=== PATIENT | female | born 1955 | race Caucasian/White ===

== ENCOUNTER → 2022-12-21 | Outpatient (CLI) | payer MEDICARE ==
--- NOTE | 2022-12-28 06:45 | BMR ---
EXAMINATION TYPE: MR breast BILAT wo/w con DATE OF EXAM: 12/21/2022 COMPARISON: None. HISTORY: Left Breast Pain, Pt feels a lump medial left breast, Bilateral implants TECHNIQUE: A series of fat and water weighted images in the long and short axis views of both breasts are obtained in conjunction with dynamic contrast MRI with subtraction technique. The patient was i njected with 9 mL intravenous Gadavist gadolinium contrast. Three-dimensional and additional postpr ocessing imaging is created on independent workstation and reviewed during official interpretation of this study. REFERENCE: Reference FINDINGS: Heterogeneously dense tissue bilaterally is present. Bilateral subglandular breast implants are seen. They are fairly symmetric in size. There are bilateral areas of internal folding with smal l focal areas of fluid seen anteriorly consistent with intracapsular rupture. No free silicone seen t o diagnose extracapsular rupture. Prominent but subcentimeter lymph nodes in the bilateral axilla. No significant focal fluid collection or cystic change in either breast. Dynamic postcontrast imaging s hows moderate to severe background enhancement with areas of tiny nodular enhancement which makes rosa luation suboptimal. Within the right breast there is no pathologic enhancement or enhancing greater than 5 mm masses iden tified. There is oval 9 x 3 mm circumscribed T1 hyperintense lesion anteriorly in the right breast ju st above the nipple image 596 series 701. Proteinaceous or hemorrhagic thin-walled cyst is suspected. No abnormal skin thickening is seen. Chest wall is intact. In the left breast, there is a 6 mm round enhancing mass in the posterior left breast abutting the i mplant image 464 series 701. This has heterogeneous enhancement on the dynamic images with predominan t benign gradual type enhancement but some areas of nonspecific plateau type enhancement. Remainder o f left breast shows no additional suspicious enhancing masses or pathologic enhancement. Chest wall i s intact. IMPRESSION: 1. There is 6 mm round enhancing mass posterior left breast abutting the implant may correlate with p atient's physical exam findings or concern. 2. Evidence of bilateral intracapsular implant rupture but implant volume size remains fairly symmetr ic in appearance. No extracapsular rupture noted. BI-RADS 2 benign findings right breast BI-RADS 4 suspicious abnormality left breast Recommendation: Advise diagnostic targeted ultrasound follow-up to further evaluate area of concern left breast. Advise bilateral diagnostic mammogram if it has not been performed to also correlate. Ad vise surgical referral for suspected bilateral intracapsular implant rupture.
== END | disposition home or self-care (01) ==
LOC: RADMRIMAIN 17:22
PROVIDERS: ATTEND Family Medicine
DX: N63.20 Unspecified lump in the left breast, unspecified quadrant (principal); N63.10 Unspecified lump in the right breast, unspecified quadrant
CPT/HCPCS: C8908; A9585; 77049

== ENCOUNTER 2023-01-28 19:44 | Inpatient (IN) | payer MEDICARE ==
[2023-01-28] MEDS ORDERED: SODIUM CHLORIDE 0.9% 500 ML 500 ML IV STA (20:00)
[2023-01-28 20:02] LABS: Glucose,Whole Blood 100 mg/dL (70-110)
--- NOTE | 2023-01-28 20:02 | ED ---
Overdose HPI - General Chief Complaint: Overdose Stated Complaint: overdose Time Seen by Provider: 01/28/23 19:56 Source: patient, family Mode of arrival: wheelchair Limitations: no limitations - History of Present Illness Initial Comments: This patient is a 67-year-old woman who presents with complaint that she had taken an overdose of Ambien. The patient states she was feeling she would be better off . This was 3 hours prior to arrival. She denies any coingestants. Patient denies chest pain, dyspnea, nausea or vomiting. She does feel tired MD Complaint: intentional overdose -: hour(s) Intent: suicide attempt How Overdose Was Discovered: family/friend present at time Associated Symptoms: depression Treatments Prior to Arrival: none - Related Data Home Medications Medication Instructions Recorded Confirmed Furosemide [Lasix] 20 mg PO DAILY PRN 10/28/14 01/28/23 Levothyroxine Sodium [Synthroid] 137 mcg PO DAILY 01/28/23 01/28/23 Simvastatin [Zocor] 40 mg PO DAILY 01/28/23 01/28/23 diazePAM [Valium] 5 mg PO BID PRN 01/28/23 01/28/23 Previous Rx's Medication Instructions Recorded Melatonin 5 mg PO HS 30 Days #30 tab 02/01/23 fluvoxaMINE MALEATE [Luvox] 150 mg PO HS 30 Days #45 tablet 02/01/23 Allergies Allergy/AdvReac Type Severity Reaction Status Date / Time amoxicillin AdvReac Rash/Hives Verified 01/29/23 05:03 Review of Systems ROS Statement: Those systems with pertinent positive or pertinent negative responses have been documented in the HPI. ROS Other: All systems not noted in ROS Statement are negative. Constitutional: Denies: fever, chills Respiratory: Denies: cough, dyspnea Cardiovascular: Denies: chest pain, palpitations Gastrointestinal: Denies: abdominal pain, vomiting Musculoskeletal: Denies: back pain Neurological: Denies: headache, weakness Psychiatric: Reports: depression, suicidal thoughts. Denies: auditory hallucinations, visual hallucinations, homicidal thoughts Past Medical History Past Medical History: Thyroid Disorder Additional Past Medical History / Comment(s): Hypothyroidism, surgically induced menopause, lower extremity edema History of Any Multi-Drug Resistant Organisms: None Reported Past Surgical History: Breast Surgery, Hysterectomy Additional Past Surgical History / Comment(s): Total abdominal hysterectomy and bilateral salpingo oophorectomy, breast implants bilaterally, jaw surgery to implant teeth Past Anesthesia/Blood Transfusion Reactions: No Reported Reaction Past Psychological History: Depression, Schizoaffective Disorder Smoking Status: Current every day smoker Past Alcohol Use History: Occasional Past Drug Use History: None Reported - Past Family History Mother Family Medical History: CVA/TIA, Diabetes Mellitus, Hypertension Additional Family Medical History / Comment(s): Mother is alive at age 79. Father Family Medical History: No Reported History, Osteoarthritis (OA) Additional Family Medical History / Comment(s): History of depression. Father is alive at age 81. Brother(s) Additional Family Medical History / Comment(s): Patient has 4 brothers with no major medical problems. She has one son and one daughter with no major medical problems. General Exam Limitations: no limitations General appearance: alert, in no apparent distress Head exam: Present: atraumatic, normocephalic Eye exam: Present: normal appearance, PERRL, EOMI, nystagmus. Absent: scleral icterus, conjunctival injection ENT exam: Present: normal oropharynx Neck exam: Present: normal inspection Respiratory exam: Present: normal lung sounds bilaterally. Absent: respiratory distress, wheezes, rales, rhonchi, stridor Cardiovascular Exam: Present: regular rate, normal rhythm, normal heart sounds. Absent: systolic murmur, diastolic murmur, rubs, gallop GI/Abdominal exam: Present: soft. Absent: distended, tenderness, guarding, rebound, rigid, mass Extremities exam: Present: normal inspection, normal capillary refill. Absent: pedal edema, calf tenderness Back exam: Present: normal inspection. Absent: CVA tenderness (R), CVA tenderness (L) Neurological exam: Present: altered (Patient is somnolent but arousable), or iented X3, CN II-XII intact. Absent: motor sensory deficit Psychiatric exam: Present: depressed, suicidal ideation. Absent: anxious, flat affect, manic, homicidal ideation Skin exam: Present: warm, dry, intact, normal color. Absent: rash Course Vital Signs 01/28/23 01/28/23 01/28/23 19:45 19:58 21:22 Temperature 97.9 F Pulse Rate 75 69 62 Pulse Rate [ Right Sitting] Respiratory 18 18 16 Rate Blood Pressure 119/76 122/79 110/71 Blood Pressure [Right Arm Sitting] O2 Sat by Pulse 96 98 96 Oximetry 01/28/23 01/28/23 01/28/23 22:07 22:30 23:06 Temperature Pulse Rate 63 64 67 Pulse Rate [ Right Sitting] Respiratory 15 20 Rate Blood Pressure 112/72 Blood Pressure [Right Arm Sitting] O2 Sat by Pulse 94 L Oximetry 01/29/23 01/29/23 01/29/23 01:30 03:14 04:02 Temperature 97.8 F 97.5 F L Pulse Rate 68 66 Pulse Rate [ 64 Right Sitting] Respiratory 20 18 15 Rate Blood Pressure 136/78 Blood Pressure 125/60 [Right Arm Sitting] O2 Sat by Pulse 93 L 98 95 Oximetry Medical Decision Making - Medical Decision Making This patient is 67-year-old woman who is here to have evaluation of she took e xtra doses of Ambien due to suicidal ideation. The patient was observed in the emergency department until she is more alert and able to speak with the EPS personnel. The patient then admitted or further psychiatric care. The patient did have chest x-ray which I interpreted as being negative for acute infiltrate, pneumothorax, congestive heart failure Was pt. sent in by a medical professional or institution (, PA, HOT [employer]ER, urgent care, hospital, or half-way...) When possible be specific @ -[No] Did you speak to anyone other than the patient for history (EMS, parent, family, police, friend...)? What history was obtained from this source @ -[Patient's family wasn't initially present and didn't give some history Did you review nursing and triage notes (agree or disagree)? Why? @ -[I reviewed and agree with nursing and triage notes] Were old charts reviewed (outside hosp., previous admission, EMS record, old EKG, old radiological studies, urgent care reports/EKG's, half-way records)? Report findings @ -[No old charts were reviewed] Differential Diagnosis (chest pain, altered mental status, abdominal pain women, abdominal pain men, vaginal bleeding, weakness, fever, dyspnea, syncope, headache, dizziness, GI bleed, back pain, seizure, CVA, palpatations, mental health, musculoskeletal)? @ -[Differential Mental Health Depression, anxiety, bipolar, psychosis, schizophrenia, borderline personality, situational depression, adjustment disorder, behavioral disorder, brain tumor, malingering, substance abuse, encephalopathy, medication reaction, dementia, hypothyroidism, degenerative neurologic disorder, lupus.... This is not meant to be all-inclusive list Differential Altered Mental Status: Hypoglycemia, DKA, hypercapnia, ETOH, overdose, CO poisoning, trauma, myxedema coma, HTN encephalopathy, infection, encephalitis, psychosis, intercranial hemorrhage, hepatic encephalopathy, meningitis, CVA, this is not meant to be an all-inclusive list EKG interpreted by me (3pts min.). @ -[As above] X-rays interpreted by me (1pt min.). @ -[As above CT interpreted by me (1pt min.). @ -[None done] U/S interpreted by me (1pt. min.). @ -[None done] What testing was considered but not performed or refused? (CT, X-rays, U/S, labs)? Why? @ -[None] What meds were considered but not given or refused? Why? @ -[None] Did you discuss the management of the patient with other professionals (professionals i.e. , PA, H[employer]ER, lab, RT, psych nurse, social science instructor, estimating manager, teacher, international first officer, watch caser)? Give summary @ -[No] Was smoking cessation discussed for >3mins.? @ -[No] Was critical care preformed (if so, how long)? @ -[No] Were there social determinants of health that impacted care today? How? (Homelessness, low income, unemployed, alcoholism, drug addiction, transportation, low edu. Level, literacy, decrease access to med. care, residential, rehab)? @ -[No] Was there de-escalation of care discussed even if they declined (Discuss DNR or withdrawal of care, Hospice)? DNR status @ -[No] What co-morbidities impacted this encounter? (DM, HTN, Smoking, COPD, CAD, Cancer, CVA, ARF, Chemo, Hep., AIDS, mental health diagnosis, sleep apnea, morbid obesity)? @ -[None] Was patient admitted / discharged? Hospital course, mention meds given and route, prescriptions, significant lab abnormalities, going to OR and other pertinent info. @ -[As above Undiagnosed new problem with uncertain prognosis? @ -[No] Drug Therapy requiring intensive monitoring for toxicity (Heparin, Nitro, Insulin, Cardizem)? @ -[No] Were any procedures done? @ -[No] Diagnosis/symptom? @ -[Acute benzodiazepine overdose, complicated by somnolence Acute on chronic mood disorder with suicidal ideation Acute, or Chronic, or Acute on Chronic? @ -[default] Uncomplicated (without systemic symptoms) or Complicated (systemic symptoms)? @ -[default] Side effects of treatment? @ -[No] Exacerbation, Progression, or Severe Exacerbation? @ -[No] Poses a threat to life or bodily function? How? (Chest pain, USA, OR, pneumonia, PE, COPD, DKA, ARF, appy, cholecystitis, CVA, Diverticulitis, Homicidal, Chavira icidal, threat to staff... and all critical care pts) @ -[Yes untreated overdose may lead to completed respiratory failure/ - Lab Data Result diagrams: 01/28/23 20:02 01/28/23 20:02 Lab Results 01/28/23 01/28/23 01/28/23 Range/Units 20:01 20:02 20:02 WBC 9.1 (3.8-10.6) k/uL RBC 4.03 (3.80-5.40) m/uL Hgb 12.9 (11.4-16.0) gm/dL Hct 39.5 (34.0-46.0) % MCV 98.0 (80.0-100.0) fL MCH 32.1 (25.0-35.0) pg MCHC 32.8 (31.0-37.0) g/dL RDW 13.2 (11.5-15.5) % Plt Count 272 (150-450) k/uL MPV 8.0 Neutrophils % 57 % Lymphocytes % 30 % Monocytes % 8 % Eosinophils % 3 % Basophils % 0 % Neutrophils # 5.2 (1.3-7.7) k/uL Lymphocytes # 2.7 (1.0-4.8) k/uL Monocytes # 0.8 (0-1.0) k/uL Eosinophils # 0.2 (0-0.7) k/uL Basophils # 0.0 (0-0.2) k/uL Sodium 137 (137-145) mmol/L Potassium 3.7 (3.5-5.1) mmol/L Chloride 103 (98-107) mmol/L Carbon Dioxide 26 (22-30) mmol/L Anion Gap 8 mmol/L BUN 8 (7-17) mg/dL Creatinine 0.76 (0.52-1.04) mg/dL Est GFR (CKD-EPI)AfAm >90 (>60 ml/min/1.73 sqM) Est GFR (CKD-EPI)NonAf 83 (>60 ml/min/1.73 sqM) Glucose 100 H (74-99) mg/dL POC Glucose (mg/dL) 100 (70-110) mg/dL POC Glu Tobacco Classer ID Damon Anderson Estimated Ave Glu mg/dL mg/dL Hemoglobin A1c (<=6.0) % Calcium 8.4 (8.4-10.2) mg/dL Total Bilirubin 0.3 (0.2-1.3) mg/dL AST 20 (14-36) U/L ALT 20 (4-34) U/L Alkaline Phosphatase 65 (38-126) U/L Total Protein 6.8 (6.3-8.2) g/dL Albumin 3.6 (3.5-5.0) g/dL Triglycerides (0.00-149.00) mg/dL Cholesterol (0.00-200.00) mg/dL LDL Cholesterol, Calc (0.0-131.0) mg/dL VLDL Cholesterol, Calc (5.00-40.00) mg/dL HDL Cholesterol (40.00-60.00) mg/dL Cholesterol/HDL Ratio Ratio TSH (0.465-4.680) mIU/L Salicylates <1.0 mg/dL Urine Opiates Screen (NotDetected) Ur Oxycodone Screen (NotDetected) Urine Methadone Screen (NotDetected) Ur Propoxyphene Screen (NotDetected) Acetaminophen <10.0 ug/mL Ur Barbiturates Screen (NotDetected) U Tricyclic Antidepress (NotDetected) Ur Phencyclidine Scrn (NotDetected) Ur Amphetamines Screen (NotDetected) U Methamphetamines Scrn (NotDetected) U Benzodiazepines Scrn (NotDetected) Urine Cocaine Screen (NotDetected) U Marijuana (THC) Screen (NotDetected) Serum Alcohol <10 mg/dL Coronavirus (PCR) (Not Detectd) 01/28/23 01/28/23 01/28/23 Range/Units 20:02 20:02 21:03 WBC (3.8-10.6) k/uL RBC (3.80-5.40) m/uL Hgb (11.4-16.0) gm/dL Hct (34.0-46.0) % MCV (80.0-100.0) fL MCH (25.0-35.0) pg MCHC (31.0-37.0) g/dL RDW (11.5-15.5) % Plt Count (150-450) k/uL MPV Neutrophils % % Lymphocytes % % Monocytes % % Eosinophils % % Basophils % % Neutrophils # (1.3-7.7) k/uL Lymphocytes # (1.0-4.8) k/uL Monocytes # (0-1.0) k/uL Eosinophils # (0-0.7) k/uL Basophils # (0-0.2) k/uL Sodium (137-145) mmol/L Potassium (3.5-5.1) mmol/L Chloride (98-107) mmol/L Carbon Dioxide (22-30) mmol/L Anion Gap mmol/L BUN (7-17) mg/dL Creatinine (0.52-1.04) mg/dL Est GFR (CKD-EPI)AfAm (>60 ml/min/1.73 sqM) Est GFR (CKD-EPI)NonAf (>60 ml/min/1.73 sqM) Glucose (74-99) mg/dL POC Glucose (mg/dL) (70-110) mg/dL POC Glu Tobacco Classer ID Estimated Ave Glu mg/dL 128 mg/dL Hemoglobin A1c 6.1 H (<=6.0) % Calcium (8.4-10.2) mg/dL Total Bilirubin (0.2-1.3) mg/dL AST (14-36) U/L ALT (4-34) U/L Alkaline Phosphatase (38-126) U/L Total Protein (6.3-8.2) g/dL Albumin (3.5-5.0) g/dL Triglycerides 223.00 H (0.00-149.00) mg/dL Cholesterol 189.00 (0.00-200.00) mg/dL LDL Cholesterol, Calc 95.5 (0.0-131.0) mg/dL VLDL Cholesterol, Calc 44.60 H (5.00-40.00) mg/dL HDL Cholesterol 48.90 (40.00-60.00) mg/dL Cholesterol/HDL Ratio 3.87 Ratio TSH 1.050 (0.465-4.680) mIU/L Salicylates mg/dL Urine Opiates Screen Not Detected (NotDetected) Ur Oxycodone Screen Not Detected (NotDetected) Urine Methadone Screen Not Detected (NotDetected) Ur Propoxyphene Screen Not Detected (NotDetected) Acetaminophen ug/mL Ur Barbiturates Screen Not Detected (NotDetected) U Tricyclic Antidepress Not Detected (NotDetected) Ur Phencyclidine Scrn Not Detected (NotDetected) Ur Amphetamines Screen Detected H (NotDetected) U Methamphetamines Scrn Not Detected (NotDetected) U Benzodiazepines Scrn Detected H (NotDetected) Urine Cocaine Screen Not Detected (NotDetected) U Marijuana (THC) Screen Not Detected (NotDetected) Serum Alcohol mg/dL Coronavirus (PCR) (Not Detectd) 01/29/23 Range/Units 00:26 WBC (3.8-10.6) k/uL RBC (3.80-5.40) m/uL Hgb (11.4-16.0) gm/dL Hct (34.0-46.0) % MCV (80.0-100.0) fL MCH (25.0-35.0) pg MCHC (31.0-37.0) g/dL RDW (11.5-15.5) % Plt Count (150-450) k/uL MPV Neutrophils % % Lymphocytes % % Monocytes % % Eosinophils % % Basophils % % Neutrophils # (1.3-7.7) k/uL Lymphocytes # (1.0-4.8) k/uL Monocytes # (0-1.0) k/uL Eosinophils # (0-0.7) k/uL Basophils # (0-0.2) k/uL Sodium (137-145) mmol/L Potassium (3.5-5.1) mmol/L Chloride (98-107) mmol/L Carbon Dioxide (22-30) mmol/L Anion Gap mmol/L BUN (7-17) mg/dL Creatinine (0.52-1.04) mg/dL Est GFR (CKD-EPI)AfAm (>60 ml/min/1.73 sqM) Est GFR (CKD-EPI)NonAf (>60 ml/min/1.73 sqM) Glucose (74-99) mg/dL POC Glucose (mg/dL) (70-110) mg/dL POC Glu Tobacco Classer ID Estimated Ave Glu mg/dL mg/dL Hemoglobin A1c (<=6.0) % Calcium (8.4-10.2) mg/dL Total Bilirubin (0.2-1.3) mg/dL AST (14-36) U/L ALT (4-34) U/L Alkaline Phosphatase (38-126) U/L Total Protein (6.3-8.2) g/dL Albumin (3.5-5.0) g/dL Triglycerides (0.00-149.00) mg/dL Cholesterol (0.00-200.00) mg/dL LDL Cholesterol, Calc (0.0-131.0) mg/dL VLDL Cholesterol, Calc (5.00-40.00) mg/dL HDL Cholesterol (40.00-60.00) mg/dL Cholesterol/HDL Ratio Ratio TSH (0.465-4.680) mIU/L Salicylates mg/dL Urine Opiates Screen (NotDetected) Ur Oxycodone Screen (NotDetected) Urine Methadone Screen (NotDetected) Ur Propoxyphene Screen (NotDetected) Acetaminophen ug/mL Ur Barbiturates Screen (NotDetected) U Tricyclic Antidepress (NotDetected) Ur Phencyclidine Scrn (NotDetected) Ur Amphetamines Screen (NotDetected) U Methamphetamines Scrn (NotDetected) U Benzodiazepines Scrn (NotDetected) Urine Cocaine Screen (NotDetected) U Marijuana (THC) Screen (NotDetected) Serum Alcohol mg/dL Coronavirus (PCR) Not Detected (Not Detectd) - EKG Data -: EKG Interpreted by Me EKG shows normal: sinus rhythm, axis (Normal), intervals (Normal), QRS complexes (Normal), ST-T waves (Normal) Rate: normal (Rate 69 bpm) Interpretation: normal EKG Disposition Clinical Impression: Suicidal ideation, Benzodiazepine overdose Disposition: ADMITTED IP TO THIS HOSP Condition: Stable
[2023-01-28 20:37] LABS: Basophils % (A) 0 %; Eosinophils # (A) 0.2 k/uL (0-0.7); Eosinophils % (A) 3 %; HCT 39.5 % (34.0-46.0); HGB 12.9 gm/dL (11.4-16.0); Lymphocytes # (A) 2.7 k/uL (1.0-4.8); Lymphocytes % (A) 30 %; MCH 32.1 pg (25.0-35.0); MCHC 32.8 g/dL (31.0-37.0); Monocytes # (A) 0.8 k/uL (0-1.0); Monocytes % (A) 8 %; Neutrophils # (A) 5.2 k/uL (1.3-7.7); Neutrophils % (A) 57 %; Platelet Count 272 k/uL (150-450); RBC 4.03 m/uL (3.80-5.40); RDW 13.2 % (11.5-15.5); WBC 9.1 k/uL (3.8-10.6)
[2023-01-28 20:53] LABS: ALT 20 U/L (4-34); Acetaminophen <10.0 ug/mL; African American GFR (CKD) >90 (>60 ml/min/1.73 sqM); Albumin 3.6 g/dL (3.5-5.0); Alcohol <10 mg/dL; Anion Gap 8 mmol/L; Blood Urea Nitrogen 8 mg/dL (7-17); Calcium 8.4 mg/dL (8.4-10.2); Carbon Dioxide 26 mmol/L (22-30); Chloride 103 mmol/L (98-107); Glucose 100 mg/dL (74-99); Non-African American GFR(CKD) 83 (>60 ml/min/1.73 sqM); Salicylate <1.0 mg/dL; Sodium 137 mmol/L (137-145); Total Bilirubin 0.3 mg/dL (0.2-1.3); Total Protein 6.8 g/dL (6.3-8.2)
--- NOTE | 2023-01-28 21:23 | XR ---
EXAMINATION TYPE: XR chest 1V portable DATE OF EXAM: 01/28/2023 9:05 PM COMPARISON: None TECHNIQUE: XR chest 1V portable Portable AP radiograph of the chest. CLINICAL INDICATION:Female, 67 years old with history of overdose; FINDINGS: Lungs/Pleura: There is no evidence of pleural effusion, focal consolidation, or pneumothorax. Lower lung hazy opacities likely represent overlying soft tissue. Pulmonary vascularity: Unremarkable. Heart/mediastinum: Cardiomediastinal silhouette is unremarkable. Musculoskeletal: No acute osseous pathology. IMPRESSION: No acute cardiopulmonary disease/process.
[2023-01-28 21:24] LABS: AST 20 U/L (14-36); Alkaline Phosphatase 65 U/L (38-126); Potassium 3.7 mmol/L (3.5-5.1)
[2023-01-28 21:37] LABS: Amphetamine Screen,Urine Detected (NotDetected); Benzodiazepines Screen,Urine Detected (NotDetected); Cocaine Screen,Urine Not Detected (NotDetected); Opiate Screen,Urine Not Detected (NotDetected); Phencyclidine Screen,Urine Not Detected (NotDetected); Urn Cannabinoid Scrn Not Detected (NotDetected)
[2023-01-28 21:38] LABS: Barbiturate Screen,Urine Not Detected (NotDetected); Methadone Screen, Urine Not Detected (NotDetected); Oxycodone Screen, Urine Not Detected (NotDetected); Tricyclic Antidepressant,Urine Not Detected (NotDetected)
[2023-01-29] MEDS ORDERED: LORazepam 1 MG TAB PO PRN (03:43)
[2023-01-29] MEDS ORDERED: MAGNESIUM HYDROXIDE 2,400 MG/30 ML CUP PO PRN (03:43)
[2023-01-29] MEDS ORDERED: IBUPROFEN 600 MG TAB PO PRN (03:43)
[2023-01-29] MEDS ORDERED: ACETAMINOPHEN TAB 325 MG TAB PO PRN (03:43)
[2023-01-29] MEDS: ATORVASTATIN 20 MG TAB PO SCH (08:46)
[2023-01-29] MEDS: LEVOTHYROXINE 137 MCG TAB PO SCH (08:46)
[2023-01-29] MEDS: diazePAM 5 MG TAB PO PRN ×2 (08:47→20:29)
[2023-01-29] MEDS: NICOTINE 14MG/24HR PATCH TRANSDERM SCH (08:50)
[2023-01-29] MEDS ORDERED: ESCITALOPRAM 10 MG TAB PO SCH (09:00)
[2023-01-29] MEDS ORDERED: FUROSEMIDE 20 MG TAB PO PRN (09:00)
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
--- NOTE | 2023-01-29 13:22 | P.HPMEDMHU ---
History of Present Illness H&P Date: 01/29/23 Patient is a 67-year-old female with a history of hypothyroidism, dyslipidemia, tobacco abuse who is currently in the mental health unit for severe depression. Patient seen and examined at bedside. She reports that she is feeling very tired today after attempting an overdose on her home Ambien. She denies any headache, double vision, loss of vision, disequilibrium, or weakness. Denies any recent cough, cold, fever, flu, nuasea, vomiting, or diarrhea. He denies any eye drainage. Vital signs reviewed General: nontoxic, no distress, appears at stated age Derm: warm, dry Eyes: EOMI, no lid lag, anicteric sclera, pupils equal round reactive to light, conjunctival injection or ENT: Nose and ears atraumatic, no thrush, no pharyngeal erythema Cardiovascular: S1S2 reg, no murmur, no edema Lungs: Decreased bs bilateral, no rhonchi, no rales, no wheeze, no accessory muscle use Ext: no gross muscle atrophy, muscle strength 5 out of 5 in all 4 extremities, no contractures Neuro: CN II-XII grossly intact, No focal neuro deficits Psych: Alert, oriented, appropriate affect Assessment/Plan: Hypothyroidism -Recommend check TSH -Resume Synthroid 137 g daily Dyslipidemia -Resume. Zocor will be substituted with Lipitor Nicotine dependency -Nicotine patch Depression Gambling disorder Benzodiazepine dependence Stimulant dependence -Your psych management Imaging: None available Data Review: Vitals reviewed temperature 97.9, pulse 82, respirations 15, blood pressure 114/65, O2 sat 96% on room air Thank you for allowing us to participate in the care of this pleasant patient. Do not hesitate to contact us with questions. Someone can be reached from the [facility] hospitalist group all hours of the day at [phone] or via [employer]. This dictation was prepared using [employer] voice recognition software. Though every attempt is made to correct errors during dictation some may still exist. Past Medical History Past Medical History: Thyroid Disorder Additional Past Medical History / Comment(s): Hypothyroidism, surgically induced menopause, lower extremity edema History of Any Multi-Drug Resistant Organisms: None Reported Past Surgical History: Breast Surgery, Hysterectomy Additional Past Surgical History / Comment(s): Total abdominal hysterectomy and bilateral salpingo oophorectomy, breast implants bilaterally, jaw surgery to implant teeth Past Anesthesia/Blood Transfusion Reactions: No Reported Reaction Past Psychological History: Depression, Schizoaffective Disorder Smoking Status: Current every day smoker Past Alcohol Use History: Occasional Additional Past Alcohol Use History / Comment(s): current smoker Past Drug Use History: None Reported - Past Family History Mother Family Medical History: CVA/TIA, Diabetes Mellitus, Hypertension Additional Family Medical History / Comment(s): Mother is alive at age 79. Father Family Medical History: No Reported History, Osteoarthritis (OA) Additional Family Medical History / Comment(s): History of depression. Father is alive at age 81. Brother(s) Additional Family Medical History / Comment(s): Patient has 4 brothers with no major medical problems. She has one son and one daughter with no major medical problems. Medications and Allergies Home Medications Medication Instructions Recorded Confirmed Type Furosemide [Lasix] 20 mg PO DAILY PRN 10/28/14 01/28/23 History Dextroamphetamine/Amphetamine 20 mg PO BID 01/28/23 01/28/23 History [Adderall] Escitalopram [Lexapro] 15 mg PO DAILY 01/28/23 01/28/23 History Levothyroxine Sodium [Synthroid] 137 mcg PO DAILY 01/28/23 01/28/23 History Simvastatin [Zocor] 40 mg PO DAILY 01/28/23 01/28/23 History Zolpidem Tartrate [Ambien Cr] 12.5 mg PO HS 01/28/23 01/28/23 History buPROPion XL [Wellbutrin XL] 150 mg PO DAILY 01/28/23 01/28/23 History buPROPion XL [Wellbutrin XL] 300 mg PO DAILY 01/28/23 01/28/23 History diazePAM [Valium] 5 mg PO BID PRN 01/28/23 01/28/23 History Allergies Allergy/AdvReac Type Severity Reaction Status Date / Time amoxicillin AdvReac Rash/Hives Verified 01/29/23 05:03 Physical Exam Osteopathic Statement: *. No significant issues noted on an osteopathic structural exam other than those noted in the History and Physical/Consult. Vitals: Vital Signs Temp Pulse Pulse Pulse Resp BP BP 01/29/23 07:55 97.9 F 82 15 114/65 01/29/23 04:02 97.5 F L 64 15 01/29/23 03:14 97.8 F 66 18 136/78 01/29/23 01:30 68 20 01/28/23 23:06 67 20 01/28/23 22:30 64 112/72 01/28/23 22:07 63 15 01/28/23 21:22 62 16 110/71 01/28/23 19:58 69 18 122/79 01/28/23 19:45 97.9 F 75 18 119/76 BP Pulse Ox 01/29/23 07:55 96 01/29/23 04:02 125/60 95 01/29/23 03:14 98 01/29/23 01:30 93 L 01/28/23 23:06 94 L 01/28/23 22:30 01/28/23 22:07 01/28/23 21:22 96 01/28/23 19:58 98 01/28/23 19:45 96 Intake and Output 01/28/23 01/29/23 01/29/23 22:59 06:59 14:59 Other: Weight 86.183 kg 89.8 kg Cranial Nerve Examination - Cranial Nerves Cranial Nerve II- Optic: Intact Cranial Nerve III- Oculomotor: Intact Cranial Nerve IV- Trochlear: Intact Cranial Nerve V- Trigeminal: Intact Cranial Nerve - Abducens: Intact Cranial Nerve VII- Facial: Intact Cranial Nerve VIII- Auditory: Intact Cranial Nerve IX- Glossopharyngeal: Intact Cranial Nerve X- Vagus: Intact Cranial Nerve XI- Accessory: Intact Cranial Nerve XII- Hypoglossal: Intact Results CBC & Chem 7: 01/28/23 20:02 01/28/23 20:02 Labs: Abnormal Lab Results - Last 24 Hours (Table) 01/28/23 01/28/23 Range/Units 20:02 21:03 Glucose 100 H (74-99) mg/dL Ur Amphetamines Screen Detected H (NotDetected) U Benzodiazepines Scrn Detected H (NotDetected) Thrombosis Risk Factor Assmnt - Choose All That Apply Any of the Below Risk Factors Present?: Yes Each Factor Represents 1 point: Minor surgery planned, Swollen legs (current) Other Risk Factors: Yes Each Risk Factor Represents 2 Points: Age 61-74 years Other congenital or acquired thrombophilia - If yes, enter type in comment: No Thrombosis Risk Factor Assessment Total Risk Factor Score: 4 Thrombosis Risk Factor Assessment Level: Moderate Risk
[2023-01-29] MEDS: LORazepam 1 MG TAB PO PRN (20:29)
[2023-01-30] MEDS: NICOTINE 14MG/24HR PATCH TRANSDERM SCH (10:00)
[2023-01-30] MEDS: LEVOTHYROXINE 137 MCG TAB PO SCH (10:07)
[2023-01-30] MEDS: ATORVASTATIN 20 MG TAB PO SCH (10:07)
--- NOTE | 2023-01-30 10:30 | P.PN ---
Progress Note - Text Progress Note Date: 01/30/23 Interval History: Patient was seen resting in bed and was directable and agreeable to speak with commercial real estate underwriter in her room. Currently, the patient is not reporting any suicidal or homicidal ideation, intention, and/or plan. He expresses a strong desire to return home as it is her grandson's birthday soon. She reports that she would like to prepare potato salad for the celebration. She reports that she has spoken to her daughter and acknowledges that she is likely prescribed the wrong medication regimen. She states that her daughter has pointed out the issues of being prescribed both Adderall and Wellbutrin together. The patient acknowledges this and is agreeable with medication adjustments today. She has been adherent with her Luvox and is not reporting any significant side effects. She reports no issues regarding her sleep or her appetite. She denies any issues regarding her hygiene and grooming. She reports no auditory or visual hallucinations. She denies any paranoia or other delusions. Mental Status Exam: General Appearance: Patient appears to be stated age is alert, directable, and cooperative. Behavior: Patient is calmly seated without any agitated behavior. Speech: Patient's speech is fluent and nonpressured. Mood/Affect: Mood is improving mildly, affect is congruent and constricted. Suicidality/Homicidality: Patient denies having any suicidal or homicidal ideation, intention, and/or plan. Perceptions: Patient denies any visual hallucinations and denies any auditory hallucinations Though content/process: There is no evidence of any delusional thought content and thought process is linear and goal-directed. Memory and concentration: AOX3, grossly intact for the purposes of this session Judgment and insight: Improving mildly Vital Signs Temp 97.9 F 01/30/23 06:38 Pulse 73 01/30/23 06:38 Resp 16 01/30/23 06:38 BP 129/62 01/30/23 06:38 Pulse Ox 99 01/30/23 06:38 FiO2 Assessment Major depressive disorder, recurrent, severe Gambling disorder Benzodiazepine dependence Stimulant dependence Nicotine dependence Plan: -Patient continues to meet criteria for inpatient psychiatric admission for symptom stabilization and safety. Patient has signed adult voluntary form and medication consent and was placed in patient's chart. -Medications: Valium 5 mg by mouth twice a day when necessary for anxiety Increase Luvox to 100 mg by mouth at bedtime for gambling disorder/depression/anxiety -NRT - nicotine patch -SW on board for discharge planning. Encouraged the patient to participate in milieu.
[2023-01-30] MEDS: diazePAM 5 MG TAB PO PRN (16:49)
[2023-01-31] MEDS: diazePAM 5 MG TAB PO PRN ×2 (01:54→18:19)
[2023-01-31] MEDS: ATORVASTATIN 20 MG TAB PO SCH (08:14)
[2023-01-31] MEDS: LEVOTHYROXINE 137 MCG TAB PO SCH (08:14)
[2023-01-31] MEDS: NICOTINE 14MG/24HR PATCH TRANSDERM SCH ×2 (08:30→20:37)
--- NOTE | 2023-01-31 11:19 | P.PN ---
Progress Note - Text Progress Note Date: 01/31/23 Interval History: Patient was seen resting in bed and was directable and agreeable to speak with health science writer in the office. The patient reports that she is feeling better. She does report she had difficulty with sleep and required valium in order to fall asleep in the middle of the night. She is otherwise denying any suicidal or homicidal ideation, intention, and/or plan. She reports no auditory or visual hallucinations. She reports no paranoia or other delusions. She has been adherent with her medication and is not reporting any side effect. She is in agreement with the plan to use luvox and to discontinue wellbutrin and adderall in the outpatient setting. We discussed at length a taper of her benzodiazepine medication. Mental Status Exam: Grossly unchanged from yesterday. General Appearance: Patient appears to be stated age is alert, directable, and cooperative. Behavior: Patient is calmly seated without any agitated behavior. Speech: Patient's speech is fluent and nonpressured. Mood/Affect: Mood is improving mildly, affect is congruent and constricted. Suicidality/Homicidality: Patient denies having any suicidal or homicidal ideation, intention, and/or plan. Perceptions: Patient denies any visual hallucinations and denies any auditory hallucinations Though content/process: There is no evidence of any delusional thought content and thought process is linear and goal-directed. Memory and concentration: AOX3, grossly intact for the purposes of this session Judgment and insight: Improving mildly Vital Signs Temp 96.2 F L 01/31/23 01:37 Pulse 67 01/31/23 01:58 Resp 14 01/31/23 01:37 BP 117/59 01/31/23 01:58 Pulse Ox 99 01/30/23 06:38 FiO2 Laboratory Results - Last 24 Hours 01/28/23 20:[address] Glu mg/dL 128 Hemoglobin A1c 6.1 H Assessment Major depressive disorder, recurrent, severe Gambling disorder Benzodiazepine dependence Stimulant dependence Nicotine dependence Plan: -Patient continues to meet criteria for inpatient psychiatric admission for symptom stabilization and safety. Patient has signed adult voluntary form and medication consent and was placed in patient's chart. -Medications: Valium 5 mg by mouth twice a day when necessary for anxiety Increase Luvox to 150 mg by mouth at bedtime for gambling disorder/depression/anxiety Start Melatonin 5 mg at bedtime for insomnia -NRT - nicotine patch -SW on board for discharge planning. Encouraged the patient to participate in milieu.
[2023-01-31 11:39] LABS: Chol/HDL Ratio 3.87 Ratio; LDL Cholesterol,Calculated 95.5 mg/dL (0.0-131.0)
[2023-01-31] MEDS ORDERED: MELATONIN 5 MG TABLET PO SCH (21:00)
[2023-01-31] MEDS: LORazepam 1 MG TAB PO PRN (21:42)
[2023-02-01 07:09] VITALS: BP 117/58; PULSE 60; RESP 16; TEMP 98.1
[2023-02-01] MEDS: ATORVASTATIN 20 MG TAB PO SCH (09:22)
[2023-02-01] MEDS: LEVOTHYROXINE 137 MCG TAB PO SCH (09:23)
--- NOTE | 2023-02-01 12:21 | P.DS ---
Providers Date of admission: 01/29/23 03:37 Expected date of discharge: 02/01/23 Attending physician: Devon Mustafa MD Consults: 01/29/23 03:43 Consult Physician Routine Consulting Provider: Erick Physician Consult Reason/Comments: H&P for mental health admission Do you want consulting provider notified?: Yes Primary care physician: Ludivina Magana - Discharge Diagnosis(es) (1) Major depressive disorder, recurrent episode, severe with anxious distress Current Visit: Yes Status: Acute Priority: High (2) Gambling disorder, severe Current Visit: Yes Status: Acute Priority: High (3) Benzodiazepine dependence Current Visit: Yes Status: Chronic Priority: Medium (4) Stimulant dependence Current Visit: Yes Status: Chronic Priority: Medium (5) Nicotine dependence Current Visit: Yes Status: Chronic Priority: Medium Hospital Course: Admission HPI: Patient is a , on disability, 67-year-old female with a significant history of depression and schizoaffective disorder who presented to our hospital on 01/28/2023, brought into the emergency department after an intentional overdose on Ambien. Patient presented to the hospital on 01/28/2023 after intentional overdose on Ambien. The patient reports that she has been depressed for the past few weeks more so than her normal depression that has been ongoing for the past 20 years. She states that she and her daughter got into an argument. She reports that she felt very down and has been struggling with gambling addiction after having lost $70,000 over the past 3 weeks. The patient reported that she "felt like I had enough." She then attempted suicide by overdosing on her home medication of Ambien. She was discovered by her family who then brought her to the emergency department. Upon evaluation on the psychiatric unit, the patient reports that she has been increasingly depressed for many years. She does report symptoms of decreased motivation, decreased hygiene and grooming, decreased energy, and suicidal thoughts. She reports that she has attempted suicide multiple times. She expresses that she feels like she would be better off and would like to be in heaven. She is currently not reporting any auditory or visual hallucinations. She is currently not reporting any paranoia or other delusions. However, review of her previous psychiatric admission in 2014 revealed a history of paranoid delusions. The patient is currently not endorsing any significant symptoms of adrian or hypomania. She denies any periods of excessive energy, grandiosity, or increased goal-directed activity. Patient states that she has been previously diagnosed with depression and schizoaffective disorder. Has been chronically prescribed her current regimen of Wellbutrin, Adderall, Valium, Ambien, and Lexapro. She is very much against any adjustment of her medications however was informed that these medications may contribute to her gambling compulsion and a history of paranoia. Furthermore, the patient is not currently working and is not in more than one environment that would warrant the use of any kind of stimulant medication. She was last hospitalized on our psychiatric unit in 2014. She is currently open with [facility]. The patient reports numerous prior attempts at suicide. Hospital course: Upon admission to the unit patient was initially presenting as irritable, demanding, and obstinate. She was also disheveled. Patient was initially hesi tant however was eventually agreeable to commence treatment. Patient got along well with other patients on the unit and followed unit protocol. Patient was compliant with the medications and denied any side effects throughout hospital course. Patient was started on Luvox for management of obsessive-compulsive symptoms and gambling disorder. Furthermore, the patient's stimulant medication including Wellbutrin and Adderall were discontinued. The patient was also counseled at great length and benzodiazepines have been contributing to her overall decline in mental health. The patient has been prescribed stimulant and sedative medications and as a result has been dependent on both medications. Patient spoke of her stressors and engaged in therapy both group and individual. Patient was also seen by medical team for history and physical exam. Over the course of the hospitalization, as the patient had her Luvox titrated, she displayed significant improvement in regards her target symptoms of anxiety, depression, and suicidal ideation. She became more future and goal oriented. She also expressed a better understanding of her medications and develop better insight and judgment. However, the patient remained somewhat fixated on the psychological need for benzodiazepine medications. On the day of discharge, the patient is not reporting any suicidal or homicidal ideation, intention, and/or plan. She is not reporting any auditory or visual hallucinations. She is denying any paranoia or other delusions. The patient continues to be somewhat fixated on staying on benzodiazepine medications and was counseled at great length on the dangers of her previous prescribing practices. She reports no access to firearms or other weapons. She reports wanting to live for her health and for her family. The patient does have a significant history of benzodiazepine dependence and stimulant dependence and was counseled great length on abstaining from these medications. She reports no significant history of other substance use and was counseled great length on abstaining from all substances including alcohol, tobacco, marijuana, and all illicit drugs. She was also advised to avoid casinos or gambling sites. The patient was offered however declined inpatient substance abuse rehabilitation. The patient was counseled at length on the importance of medication adherence appropriate outpatient follow-up. As the patient no longer met criteria for continued inpatient psychiatric hospitalization, she was subsequently discharged after appropriate safety planning. She reported no medical issues or concerns and denied any chest pain, sugars breath, palpitations, headache, nausea, vomiting, akathisia, or tardive dyskinesia. Mental status exam: General Appearance: Patient appears to be stated age is alert, pleasant, and cooperative. Patient is in no acute distress and has fair hygiene and grooming Behavior: Patient is calmly seated without any agitated behavior. Speech: Patient's speech is fluent and nonpressured. Mood/Affect: Patient reports their mood is "much better", affect is congruent and euthymic to bright. Suicidality/Homicidality: Patient denies having any suicidal or homicidal ideation intent or plan. Perceptions: Patient denies any auditory or visual hallucinations. Though content/process: There is no evidence of any delusional thought content and thought process is linear and goal-directed. Future oriented however continues to be somewhat fixated on the psychological need for benzodiazepines. Memory and concentration: AOX3, grossly intact for the purposes of this session. Can spell "WORLD" backwards correctly. Judgment and insight: Improved with guarded prognosis Impression: Major depressive disorder, recurrent, severe Gambling disorder Benzodiazepine dependence Stimulant dependence Nicotine dependence Plan: -Continue with discharge today as patient has improved and stabilized psychiatrically and is not currently an imminent threat to herself and/or others. Patient will remain at chronically elevated risk due to her benzodiazepine dependence and her previous attempts at suicide. -Continue medications: Luvox 150 mg by mouth at bedtime for depression/anxiety/OCD/gambling Melatonin 5 mg daily at bedtime for insomnia -Patient was counseled on the need for medication compliance and appropriate follow-up at mental health and also primary care for medical issues. Patient verbalized understanding and agreed. -Social work to arrange for and conduct family meeting to ensure safety upon discharge and answer any questions/concerns. Social work also to arrange for patients follow up appointments with [facility] psychiatry for psychiatric care along with follow up with primary care provider. -Patient counseled on abstaining from recreational drugs and marijuana and alcohol. She was also advised to discuss with her outpatient provider regarding her use of controlled medications. Was informed/educated on the adverse effects on their physical and mental health. Patient verbally agreed and understood. Patient was offered substance abuse treatment however declined at this time. -Patient was instructed to return to the hospital or seek immediate medical care if their psychiatric or medical symptoms do worsen or reoccur. -Psychoeducation and supportive therapy provided to patient. Risks and benefits of pharmacological treatment versus the risks and benefits of nontreatment weighed and discussed. Informed consent discussion held. Common side effects of psychotropics discussed such as, but not limited to headache, GI disturbance, sexual dysfunction, movement disorders, sedation, and orthostatic hypotension. Life threatening and blackbox warnings of prescribed medications also discussed. Potential risks of operating a vehicle or heavy machinery discussed with patient at length. Advised on importance of compliance and a reliable and responsible manner. Patient advised to review FDA consumer labeling of all medications prior to taking. Patient verbalized understanding of potential risks, and agrees with current treatment plan. Patient advised to medically contact physician/emergency personnel if any acute changes in condition occur. Vital Signs Temp 98.1 F 02/01/23 05:00 Pulse 60 02/01/23 05:00 Resp 16 02/01/23 05:00 BP 117/58 02/01/23 05:00 Pulse Ox 95 02/01/23 05:00 FiO2 Laboratory Results WBC 9.1 k/uL (3.8-10.6) 01/28/23 20:02 RBC 4.03 m/uL (3.80-5.40) 01/28/23 20:02 Hgb 12.9 gm/dL (11.4-16.0) 01/28/23 20:02 Hct 39.5 % (34.0-46.0) 01/28/23 20: MCV 98.0 fL (80.0-100.0) 01/28/23 20:02 MCH 32.1 pg (25.0-35.0) 01/28/23 20:02 MCHC 32.8 g/dL (31.0-37.0) 01/28/23 20:02 RDW 13.2 % (11.5-15.5) 01/28/23 20:02 Plt Count 272 k/uL (150-450) 01/28/23 20:02 MPV 8.0 01/28/23 20:02 Neutrophils % 57 % 01/28/23 20:02 Lymphocytes % 30 % 01/28/23 20:02 Monocytes % 8 % 01/28/23 20:02 Eosinophils % 3 % 01/28/23 20:02 Basophils % 0 % 01/28/23 20:02 Neutrophils # 5.2 k/uL (1.3-7.7) 01/28/23 20:02 Lymphocytes # 2.7 k/uL (1.0-4.8) 01/28/23 20:02 Monocytes # 0.8 k/uL (0-1.0) 01/28/23 20:02 Eosinophils # 0.2 k/uL (0-0.7) 01/28/23 20:02 Basophils # 0.0 k/uL (0-0.2) 01/28/23 20:02 Sodium 137 mmol/L (137-145) 01/28/23 20:02 Potassium 3.7 mmol/L (3.5-5.1) 01/28/23 20:02 Chloride 103 mmol/L (98-107) 01/28/23 20:02 Carbon Dioxide 26 mmol/L (22-30) 01/28/23 20:02 Anion Gap 8 mmol/L 01/28/23 20:02 BUN 8 mg/dL (7-17) 01/28/23 20:02 Creatinine 0.76 mg/dL (0.52-1.04) 01/28/23 20:02 Est GFR (CKD-EPI)AfAm >90 (>60 ml/min/1.73 sqM) 01/28/23 20:02 Est GFR (CKD-EPI)NonAf 83 (>60 ml/min/1.73 sqM) 01/28/23 20:02 Glucose 100 mg/dL (74-99) H 01/28/23 20:02 POC Glucose (mg/dL) 100 mg/dL (70-110) 01/28/23 20:01 POC Glu Paralegal Assistant Damon Mullins 01/28/23 20:[address] Glu mg/dL 128 mg/dL 01/28/23 20:02 Hemoglobin A1c 6.1 % (<=6.0) H 01/28/23 20:02 Calcium 8.4 mg/dL (8.4-10.2) 01/28/23 20:02 Total Bilirubin 0.3 mg/dL (0.2-1.3) 01/28/23 20:02 AST 20 U/L (14-36) 01/28/23 20:02 ALT 20 U/L (4-34) 01/28/23 20:02 Alkaline Phosphatase 65 U/L (38-126) 01/28/23 20:02 Total Protein 6.8 g/dL (6.3-8.2) 01/28/23 20:02 Albumin 3.6 g/dL (3.5-5.0) 01/28/23 20:02 Triglycerides 223.00 mg/dL (0.00-149.00) H 01/28/23 20:02 Cholesterol 189.00 mg/dL (0.00-200.00) 01/28/23 20:02 LDL Cholesterol, Calc 95.5 mg/dL (0.0-131.0) 01/28/23 20:02 VLDL Cholesterol, Calc 44.60 mg/dL (5.00-40.00) H 01/28/23 20:02 HDL Cholesterol 48.90 mg/dL (40.00-60.00) 01/28/23 20:02 Cholesterol/HDL Ratio 3.87 Ratio 01/28/23 20:02 TSH 1.050 mIU/L (0.465-4.680) 01/28/23 20:02 Salicylates <1.0 mg/dL 01/28/23 20:02 Urine Opiates Screen Not Detected (NotDetected) 01/28/23 21:03 Ur Oxycodone Screen Not Detected (NotDetected) 01/28/23 21:03 Urine Methadone Screen Not Detected (NotDetected) 01/28/23 21:03 Ur Propoxyphene Screen Not Detected (NotDetected) 01/28/23 21:03 Acetaminophen <10.0 ug/mL 01/28/23 20:02 Ur Barbiturates Screen Not Detected (NotDetected) 01/28/23 21:03 U Tricyclic Antidepress Not Detected (NotDetected) 01/28/23 21:03 Ur Phencyclidine Scrn Not Detected (NotDetected) 01/28/23 21:03 Ur Amphetamines Screen Detected (NotDetected) H 01/28/23 21:03 U Methamphetamines Scrn Not Detected (NotDetected) 01/28/23 21:03 U Benzodiazepines Scrn Detected (NotDetected) H 01/28/23 21:03 Urine Cocaine Screen Not Detected (NotDetected) 01/28/23 21:03 U Marijuana (THC) Screen Not Detected (NotDetected) 01/28/23 21:03 Serum Alcohol <10 mg/dL 01/28/23 20:02 Coronavirus (PCR) Not Detected (Not Detectd) 01/29/23 00:26 Allergies Allergy/AdvReac Type Severity Reaction Status Date / Time amoxicillin AdvReac Rash/Hives Verified 01/29/23 05:03 Patient Condition at Discharge: Stable Plan - Discharge Summary Discharge Rx Participant: Yes New Discharge Prescriptions: New fluvoxaMINE MALEATE [Luvox] 150 mg PO HS 30 Days #45 tablet Melatonin 5 mg PO HS 30 Days #30 tab Continue Furosemide [Lasix] 20 mg PO DAILY PRN PRN Reason: Edema Simvastatin [Zocor] 40 mg PO DAILY diazePAM [Valium] 5 mg PO BID PRN PRN Reason: Anxiety Levothyroxine Sodium [Synthroid] 137 mcg PO DAILY Discontinued buPROPion XL [Wellbutrin XL] 150 mg PO DAILY Zolpidem Tartrate [Ambien Cr] 12.5 mg PO HS buPROPion XL [Wellbutrin XL] 300 mg PO DAILY Escitalopram [Lexapro] 15 mg PO DAILY Dextroamphetamine/Amphetamine [Adderall] 20 mg PO BID Discharge Medication List Furosemide [Lasix] 20 mg PO DAILY PRN 10/28/14 [History] Levothyroxine Sodium [Synthroid] 137 mcg PO DAILY 01/28/23 [History] Simvastatin [Zocor] 40 mg PO DAILY 01/28/23 [History] diazePAM [Valium] 5 mg PO BID PRN 01/28/23 [History] Melatonin 5 mg PO HS 30 Days #30 tab 02/01/23 [Rx] fluvoxaMINE MALEATE [Luvox] 150 mg PO HS 30 Days #45 tablet 02/01/23 [Rx] Follow up Appointment(s)/Referral(s): Melinda Dash [Other] - 02/06/23 8:00 am (02/06 @ 08:00 telehealth with [facility] 02/13 @ 08:00 telehealth with [facility] ) Ludivina Magana MD [Primary Care Provider] - 1-2 days Patient Instructions/Handouts: Depression (DC), Schizoaffective Disorder (DC), Suicide Prevention (DC) Activity/Diet/Wound Care/Special Instructions: Avoid the use of street drugs and alcohol. Take all medications as prescribed. When you are in need of refills on your medications, please contact your medical provider and/or outpatient psychiatrist to have this done. Please go to scheduled outpatient appointments for aftercare treatment. If symptoms return or become worse, call the crisis line at and/or go to the nearest emergency room for evaluation. Discharge Disposition: HOME SELF-CARE
== END 2023-02-01 14:05 | disposition home or self-care (01) | DRG 885 ==
LOC: EC 19:44 → 3MHU 01-29 03:37
PROVIDERS: ADMIT Psychiatry & Neurology Psychiatry; ATTEND Psychiatry & Neurology Psychiatry
DX: F33.2 Major depressive disorder, recurrent severe without psychotic features (principal); F13.20 Sedative, hypnotic or anxiolytic dependence, uncomplicated; E03.9 Hypothyroidism, unspecified; F17.210 Nicotine dependence, cigarettes, uncomplicated; F25.9 Schizoaffective disorder, unspecified; F41.9 Anxiety disorder, unspecified; F63.0 Pathological gambling; F42.9 Obsessive-compulsive disorder, unspecified; G47.00 Insomnia, unspecified; Z71.51 Drug abuse counseling and surveillance of drug abuser; T42.6X2A Poisoning by other antiepileptic and sedative-hypnotic drugs, intentional self-harm, initial encounter; Z62.810 Personal history of physical and sexual abuse in childhood; Z79.890 Hormone replacement therapy; Z79.899 Other long term (current) drug therapy; Z81.8 Family history of other mental and behavioral disorders; Z91.410 Personal history of adult physical and sexual abuse; Z98.82 Breast implant status; Z20.822 Contact with and (suspected) exposure to COVID-19; Z28.21 Immunization not carried out because of patient refusal; Z91.51 Personal history of suicidal behavior; Z88.0 Allergy status to penicillin
CPT/HCPCS: 36415; 71045; 80053; 80061; 80143; 80179; 80306; 80320; 83036; 84443; 85025; 87635; 93005

== ENCOUNTER 2024-01-13 14:22 | Inpatient (IN) | payer MEDICARE, MEDICAID ==
[2024-01-13 15:52] LABS: HCT 39.3 % (34.0-46.0); HGB 12.6 gm/dL (11.4-16.0); MCH 31.1 pg (25.0-35.0); MCHC 32.1 g/dL (31.0-37.0); MCV 96.8 fL (80.0-100.0); Mean Platelet Volume 7.5; Platelet Count 262 k/uL (150-450); RBC 4.06 m/uL (3.80-5.40); RDW 13.5 % (11.5-15.5); WBC 8.8 k/uL (3.8-10.6)
[2024-01-13 16:03] LABS: ALT 20 U/L (4-34); African American GFR (CKD) >90 (>60 ml/min/1.73 sqM); Anion Gap 5 mmol/L; Blood Urea Nitrogen 13 mg/dL (7-17); Calcium 9.2 mg/dL (8.4-10.2); Carbon Dioxide 27 mmol/L (22-30); Chloride 106 mmol/L (98-107); Glucose 109 mg/dL (74-99); Non-African American GFR(CKD) 78 (>60 ml/min/1.73 sqM); Sodium 138 mmol/L (137-145)
[2024-01-13 16:04] LABS: AST 25 U/L (14-36); Albumin 4.1 g/dL (3.5-5.0); Alkaline Phosphatase 76 U/L (38-126); Magnesium 2.2 mg/dL (1.6-2.3); Potassium 4.8 mmol/L (3.5-5.1); Total Bilirubin 0.6 mg/dL (0.2-1.3); Total Protein 7.4 g/dL (6.3-8.2)
--- NOTE | 2024-01-13 16:20 | ED ---
General Adult HPI - General Source: patient, RN notes reviewed, old records reviewed <Bassam Bobby - Last Filed: 01/13/24 20:35> <Cheikh Casas - Last Filed: 01/14/24 01:50> - General Stated complaint: overdose Time Seen by Provider: 01/13/24 15:20 - History of Present Illness Initial comments: This is a 68-year-old female who presents to the emergency department states that last night she got into a argument with the daughter and the daughter threatened to move away and that upset her so she wanted to psych patient states she took 27 Ambien and 40 Valium and this was at 8:00 last night. Patient states she woke up this morning and realized it did not work so she stat ed she wanted to try to have a heart attack so she took 15 Adderall. Patient states she feels tired but she has no other complaints at this time but still is feeling suicidal. (Bassam Bobby) - Related Data Home Medications Medication Instructions Recorded Confirmed Furosemide [Lasix] 20 mg PO DAILY 10/28/14 01/13/24 Levothyroxine Sodium [Synthroid] 137 mcg PO DAILY 01/28/23 01/13/24 Simvastatin [Zocor] 40 mg PO DAILY 01/28/23 01/13/24 diazePAM [Valium] 5 mg PO BID PRN 01/28/23 01/13/24 ARIPiprazole [Abilify] 10 mg PO HS 01/13/24 01/13/24 Dextroamphetamine/Amphetamine 20 mg PO BID 01/13/24 01/13/24 [Adderall] Escitalopram [Lexapro] 10 mg PO DAILY 01/13/24 01/13/24 Zolpidem Tartrate [Ambien Cr] 12.5 mg PO HS 01/13/24 01/13/24 buPROPion XL [Wellbutrin XL] 300 mg PO DAILY 01/13/24 01/13/24 Allergies Allergy/AdvReac Type Severity Reaction Status Date / Time amoxicillin Allergy Rash/Hives Verified 01/13/24 17:39 Review of Systems ROS Other: All systems not noted in ROS Statement are negative. <Bassam Bobby - Last Filed: 01/13/24 20:35> ROS Other: All systems not noted in ROS Statement are negative. <Cheikh Casas - Last Filed: 01/14/24 01:50> ROS Statement: Those systems with pertinent positive or pertinent negative responses have been documented in the HPI. Past Medical History Past Medical History: Thyroid Disorder Additional Past Medical History / Comment(s): Hypothyroidism, surgically induced menopause, lower extremity edema History of Any Multi-Drug Resistant Organisms: None Reported Past Surgical History: Breast Surgery, Hysterectomy Additional Past Surgical History / Comment(s): Total abdominal hysterectomy and bilateral salpingo oophorectomy, breast implants bilaterally, jaw surgery to implant teeth Past Anesthesia/Blood Transfusion Reactions: No Reported Reaction Past Psychological History: Depression, Schizoaffective Disorder Smoking Status: Current every day smoker Past Alcohol Use History: Occasional Past Drug Use History: None Reported - Past Family History Mother Family Medical History: CVA/TIA, Diabetes Mellitus, Hypertension Additional Family Medical History / Comment(s): Mother is alive at age 79. Father Family Medical History: No Reported History, Osteoarthritis (OA) Additional Family Medical History / Comment(s): History of depression. Father is alive at age 81. Brother(s) Additional Family Medical History / Comment(s): Patient has 4 brothers with no major medical problems. She has one son and one daughter with no major medical problems. <Bassam Bobby - Last Filed: 01/13/24 20:35> General Exam <BobbyBassam - Last Filed: 01/13/24 20:35> - General Exam Comments Initial Comments: GENERAL: Patient is well-developed and well-nourished. Patient is nontoxic and well- hydrated and is in no acute distress. ENT: Neck is soft and supple. No significant lymphadenopathy is noted. Oropharynx is clear. Moist mucous membranes. Neck has full range of motion without eliciting any pain. EYES: The sclera were anicteric and conjunctiva were pink and moist. Extraocular movements were intact and pupils were equal round and reactive to light. E yelids were unremarkable. PULMONARY: Unlabored respirations. Good breath sounds bilaterally. No audible rales rhonchi or wheezing was noted. CARDIOVASCULAR: There is a regular rate and rhythm without any murmurs gallops or rubs. ABDOMEN: Soft and nontender with normal bowel sounds. SKIN: Skin is clear with no lesions or rashes and otherwise unremarkable. NEUROLOGIC: Patient is alert and oriented x3. Cranial nerves II through XII are grossly intact. Motor and sensory are also intact. Normal speech, volume and content. Symmetrical smile. MUSCULOSKELETAL: Normal extremities with adequate strength and full range of motion. LYMPHATICS: No significant lymphadenopathy is noted PSYCHIATRIC: Patient states she is suicidal and made an attempt and she seems very depressed with a very flat affect (Bassam Bobby) Course Vital Signs 01/13/24 01/13/24 16:00 19:53 Pulse Rate 77 83 Respiratory 18 18 Rate Blood Pressure 136/90 150/96 O2 Sat by Pulse 97 100 Oximetry Medical Decision Making - Lab Data Result diagrams: 01/13/24 15:30 01/13/24 15:30 <Bassam Bobby - Last Filed: 01/13/24 20:35> - Lab Data Result diagrams: 01/13/24 15:30 01/13/24 15:30 <Cheikh Casas - Last Filed: 01/14/24 01:50> - Medical Decision Making EKG was interpreted by myself. EKG shows a sinus rhythm at 74 bpm TN is 176 QRS is 96 QT interval 381 QTc is 408. Was pt. sent in by a medical professional or institution ([facility], [facility], urgent care, hospital, or care home...) When possible be specific @ -No Did you speak to anyone other than the patient for history (EMS, parent, family, police, friend...)? What history was obtained from this source @ -No Did you review nursing and triage notes (agree or disagree)? Why? @ -I reviewed and agree with nursing and triage notes Were old charts reviewed (outside hosp., previous admission, EMS record, old EKG, old radiological studies, urgent care reports/EKG's, care home records)? Report findings @ -No old charts were reviewed Differential Diagnosis (chest pain, altered mental status, abdominal pain women, abdominal pain men, vaginal bleeding, weakness, fever, dyspnea, syncope, headache, dizziness, GI bleed, back pain, seizure, CVA, palpatations, mental health, musculoskeletal)? @ -Differential Mental Health Depression, anxiety, bipolar, psychosis, schizophrenia, borderline personality, situational depression, adjustment disorder, behavioral disorder, brain tumor, malingering, substance abuse, encephalopathy, medication reaction, dementia, hypothyroidism, degenerative neurologic disorder, lupus.... This is not meant to be all-inclusive list EKG interpreted by me (3pts min.). @ -As above X-rays interpreted by me (1pt min.). @ -None done CT interpreted by me (1pt min.). @ -None done U/S interpreted by me (1pt. min.). @ -None done What testing was considered but not performed or refused? (CT, X-rays, U/S, labs)? Why? @ -None What meds were considered but not given or refused? Why? @ -None Did you discuss the management of the patient with other professionals (professionals i.e. DrKarlie, PA, [employer] [facility], lab, RT, psych nurse, social science teacher, cryptanalyst, teacher, chief creative officer, case technician)? Give summary @ -No Was smoking cessation discussed for >3mins.? @ -No Was critical care preformed (if so, how long)? @ -35 minutes Were there social determinants of health that impacted care today? How? (Homelessness, low income, unemployed, alcoholism, drug addiction, transportation, low edu. Level, literacy, decrease access to med. care, group home, rehab)? @ -No Was there de-escalation of care discussed even if they declined (Discuss DNR or withdrawal of care, Hospice)? DNR status @ -No What co-morbidities impacted this encounter? (DM, HTN, Smoking, COPD, CAD, Cancer, CVA, ARF, Chemo, Hep., AIDS, mental health diagnosis, sleep apnea, morbid obesity)? @ -None Was patient admitted / discharged? Hospital course, mention meds given and route, prescriptions, significant lab abnormalities, going to OR and other pertinent info. @ -Patient was medically cleared at 7:30 PM. Patient was able to ambulate converse without problems she was in no distress and had no complaints aside from the fact that she wanted to harm herself. EPS is yet to evaluate the patient the patient be signed out to Dr. Casas at 9 P Undiagnosed new problem with uncertain prognosis? @ -No Drug Therapy requiring intensive monitoring for toxicity (Heparin, Nitro, Insuli n, Cardizem)? @ -No Were any procedures done? @ -No Diagnosis/symptom? @ -Suicide attempt Acute, or Chronic, or Acute on Chronic? @ -Acute Uncomplicated (without systemic symptoms) or Complicated (systemic symptoms)? @ -Default Side effects of treatment? @ -No Exacerbation, Progression, or Severe Exacerbation? @ -No Poses a threat to life or bodily function? How? (Chest pain, [place], [place], pneumonia, PE, COPD, DKA, ARF, appy, cholecystitis, CVA, Diverticulitis, Homicidal, Suicidal, threat to staff... and all critical care pts) @ -Yes this could lead to Diagnosis/symptom? @ -Overdose Acute, or Chronic, or Acute on Chronic? @ -Acute Uncomplicated (without systemic symptoms) or Complicated (systemic symptoms)? @ -complicated Side effects of treatment? @ -None Exacerbation, Progression, or Severe Exacerbation] @ -No Poses a threat to life or bodily function? @ -No (Bassam Bobby) Patient evaluated by EPS and will be admitted for further psychiatric evaluation and treatment. (Cheikh Casas) - Lab Data Lab Results 01/13/24 01/13/24 01/13/24 Range/Units 15:30 15:30 15:30 WBC 8.8 (3.8-10.6) k/uL RBC 4.06 (3.80-5.40) m/uL Hgb 12.6 (11.4-16.0) gm/dL Hct 39.3 (34.0-46.0) % MCV 96.8 (80.0-100.0) fL MCH 31.1 (25.0-35.0) pg MCHC 32.1 (31.0-37.0) g/dL RDW 13.5 (11.5-15.5) % Plt Count 262 (150-450) k/uL MPV 7.5 Sodium 138 (137-145) mmol/L Potassium 4.8 (3.5-5.1) mmol/L Chloride 106 (98-107) mmol/L Carbon Dioxide 27 (22-30) mmol/L Anion Gap 5 mmol/L BUN 13 (7-17) mg/dL Creatinine 0.79 (0.52-1.04) mg/dL Est GFR (CKD-EPI)AfAm >90 (>60 ml/min/1.73 sqM) Est GFR (CKD-EPI)NonAf 78 (>60 ml/min/1.73 sqM) Glucose 109 H (74-99) mg/dL Calcium 9.2 (8.4-10.2) mg/dL Magnesium 2.2 (1.6-2.3) mg/dL Total Bilirubin 0.6 (0.2-1.3) mg/dL AST 25 (14-36) U/L ALT 20 (4-34) U/L Alkaline Phosphatase 76 (38-126) U/L Total Protein 7.4 (6.3-8.2) g/dL Albumin 4.1 (3.5-5.0) g/dL Salicylates <1.0 mg/dL Urine Opiates Screen (NotDetected) Ur Oxycodone Screen (NotDetected) Urine Methadone Screen (NotDetected) Acetaminophen <10.0 ug/mL Ur Barbiturates Screen (NotDetected) U Tricyclic Antidepress (NotDetected) Ur Phencyclidine Scrn (NotDetected) Ur Amphetamines Screen (NotDetected) U Methamphetamines Scrn (NotDetected) U Benzodiazepines Scrn (NotDetected) Urine Cocaine Screen (NotDetected) U Marijuana (THC) Screen (NotDetected) 01/13/24 Range/Units 16:41 WBC (3.8-10.6) k/uL RBC (3.80-5.40) m/uL Hgb (11.4-16.0) gm/dL Hct (34.0-46.0) % MCV (80.0-100.0) fL MCH (25.0-35.0) pg MCHC (31.0-37.0) g/dL RDW (11.5-15.5) % Plt Count (150-450) k/uL MPV Sodium (137-145) mmol/L Potassium (3.5-5.1) mmol/L Chloride (98-107) mmol/L Carbon Dioxide (22-30) mmol/L Anion Gap mmol/L BUN (7-17) mg/dL Creatinine (0.52-1.04) mg/dL Est GFR (CKD-EPI)AfAm (>60 ml/min/1.73 sqM) Est GFR (CKD-EPI)NonAf (>60 ml/min/1.73 sqM) Glucose (74-99) mg/dL Calcium (8.4-10.2) mg/dL Magnesium (1.6-2.3) mg/dL Total Bilirubin (0.2-1.3) mg/dL AST (14-36) U/L ALT (4-34) U/L Alkaline Phosphatase (38-126) U/L Total Protein (6.3-8.2) g/dL Albumin (3.5-5.0) g/dL Salicylates mg/dL Urine Opiates Screen Not Detected (NotDetected) Ur Oxycodone Screen Not Detected (NotDetected) Urine Methadone Screen Not Detected (NotDetected) Acetaminophen ug/mL Ur Barbiturates Screen Not Detected (NotDetected) U Tricyclic Antidepress Not Detected (NotDetected) Ur Phencyclidine Scrn Not Detected (NotDetected) Ur Amphetamines Screen Detected H (NotDetected) U Methamphetamines Scrn Not Detected (NotDetected) U Benzodiazepines Scrn Detected H (NotDetected) Urine Cocaine Screen Not Detected (NotDetected) U Marijuana (THC) Screen Not Detected (NotDetected) Disposition Time of Disposition: 20:39 <Bassam Bobby - Last Filed: 01/13/24 20:35> Is patient prescribed a controlled substance at d/c from ED?: No <Cheikh Casas - Last Filed: 01/14/24 01:50> Clinical Impression: Drug overdose, Depression, Suicide attempt Disposition: ADMITTED IP TO THIS [facility] Condition: Stable Referrals: None,Stated [REFERRING] - 1-2 days
[2024-01-13 17:25] LABS: Amphetamine Screen,Urine Detected (NotDetected); Barbiturate Screen,Urine Not Detected (NotDetected); Benzodiazepines Screen,Urine Detected (NotDetected); Cocaine Screen,Urine Not Detected (NotDetected); Methadone Screen, Urine Not Detected (NotDetected); Opiate Screen,Urine Not Detected (NotDetected); Oxycodone Screen, Urine Not Detected (NotDetected); Phencyclidine Screen,Urine Not Detected (NotDetected); Tricyclic Antidepressant,Urine Not Detected (NotDetected); Urn Cannabinoid Scrn Not Detected (NotDetected)
[2024-01-13 19:21] LABS: Acetaminophen <10.0 ug/mL; Salicylate <1.0 mg/dL
[2024-01-14] MEDS ORDERED: HALOPERIDOL LACTATE 5 MG/ML 1 ML VIAL IM PRN (02:58)
[2024-01-14] MEDS ORDERED: MAG HYDROX/AL HYDROX/SIMETH 355 ML BOTTLE PO PRN (02:58)
[2024-01-14] MEDS ORDERED: traZODone HCL 100 MG TAB PO PRN (02:58)
[2024-01-14] MEDS ORDERED: ACETAMINOPHEN TAB 325 MG TAB PO PRN (02:58)
[2024-01-14] MEDS ORDERED: LORazepam 2 MG/ML INJ IM PRN (02:58)
[2024-01-14 04:06] VITALS: RESP 18
[2024-01-14] MEDS: LEVOTHYROXINE 137 MCG TAB PO SCH (06:35)
[2024-01-14] MEDS: NICOTINE 14MG/24HR PATCH TRANSDERM SCH (06:51)
[2024-01-14] MEDS: ATORVASTATIN 20 MG TAB PO SCH (08:17)
[2024-01-14] MEDS: FUROSEMIDE 20 MG TAB PO SCH (08:17)
[2024-01-14 11:02] LABS: Appearance,Urine Clear (Clear); Bacteria,Urine Rare /hpf; Bilirubin,Urine Negative (Negative); Blood,Urine Negative (Negative); Color,Urine Colorless; Glucose,Urine (UA) Negative (Negative); Ketones,Urine Negative (Negative); Leukocyte Esterase,Urine Large (Negative); Nitrite,Urine Negative (Negative); PH, Urine 5.5 (5.0-8.0); Protein,Urine Negative (Negative); RBC,Urine 2 /hpf (0-5); Specific Gravity,Urine 1.002 (1.001-1.035); Squamous Epithelial Cell,Urine 2 /hpf (0-4); Urobilinogen,Urine <2.0 mg/dL (<2.0); WBC,Urine 19 /hpf (0-5)
--- NOTE | 2024-01-14 12:13 | P.HP ---
Psychiatric H&P - . H&P Date: 01/14/24 History & Physical: Allergies Allergy/AdvReac Type Severity Reaction Status Date / Time amoxicillin Allergy Rash/Hives Verified 01/13/24 17:39 Vital Signs Temp 97.6 F 01/14/24 08:17 Pulse 96 01/14/24 08:17 Resp 18 01/14/24 08:18 BP 134/75 01/14/24 08:17 Pulse Ox 93 L 01/14/24 08:18 FiO2 Intake & Output 01/13/24 01/14/24 01/14/24 18:59 06:59 18:59 Weight 95.254 kg 92.646 kg Laboratory Last Values WBC 8.8 k/uL (3.8-10.6) 01/13/24 15:30 RBC 4.06 m/uL (3.80-5.40) 01/13/24 15:30 Hgb 12.6 gm/dL (11.4-16.0) 01/13/24 15:30 Hct 39.3 % (34.0-46.0) 01/13/24 15:30 MCV 96.8 fL (80.0-100.0) 01/13/24 15:30 MCH 31.1 pg (25.0-35.0) 01/13/24 15:30 MCHC 32.1 g/dL (31.0-37.0) 01/13/24 15:30 RDW 13.5 % (11.5-15.5) 01/13/24 15:30 Plt Count 262 k/uL (150-450) 01/13/24 15:30 MPV 7.5 01/13/24 15:30 Sodium 138 mmol/L (137-145) 01/13/24 15:30 Potassium 4.8 mmol/L (3.5-5.1) 01/13/24 15:30 Chloride 106 mmol/L (98-107) 01/13/24 15:30 Carbon Dioxide 27 mmol/L (22-30) 01/13/24 15:30 Anion Gap 5 mmol/L 01/13/24 15:30 BUN 13 mg/dL (7-17) 01/13/24 15:30 Creatinine 0.79 mg/dL (0.52-1.04) 01/13/24 15:30 Est GFR (CKD-EPI)AfAm >90 (>60 ml/min/1.73 sqM) 01/13/24 15:30 Est GFR (CKD-EPI)NonAf 78 (>60 ml/min/1.73 sqM) 01/13/24 15:30 Glucose 109 mg/dL (74-99) H 01/13/24 15:30 Calcium 9.2 mg/dL (8.4-10.2) 01/13/24 15:30 Magnesium 2.2 mg/dL (1.6-2.3) 01/13/24 15:30 Total Bilirubin 0.6 mg/dL (0.2-1.3) 01/13/24 15:30 AST 25 U/L (14-36) 01/13/24 15:30 ALT 20 U/L (4-34) 01/13/24 15:30 Alkaline Phosphatase 76 U/L (38-126) 01/13/24 15:30 Total Protein 7.4 g/dL (6.3-8.2) 01/13/24 15:30 Albumin 4.1 g/dL (3.5-5.0) 01/13/24 15:30 Salicylates <1.0 mg/dL 01/13/24 15:30 Urine Opiates Screen Not Detected (NotDetected) 01/13/24 16:41 Ur Oxycodone Screen Not Detected (NotDetected) 01/13/24 16:41 Urine Methadone Screen Not Detected (NotDetected) 01/13/24 16:41 Acetaminophen <10.0 ug/mL 01/13/24 15:30 Ur Barbiturates Screen Not Detected (NotDetected) 01/13/24 16:41 U Tricyclic Antidepress Not Detected (NotDetected) 01/13/24 16:41 Ur Phencyclidine Scrn Not Detected (NotDetected) 01/13/24 16:41 Ur Amphetamines Screen Detected (NotDetected) H 01/13/24 16:41 U Methamphetamines Scrn Not Detected (NotDetected) 01/13/24 16:41 U Benzodiazepines Scrn Detected (NotDetected) H 01/13/24 16:41 Urine Cocaine Screen Not Detected (NotDetected) 01/13/24 16:41 U Marijuana (THC) Screen Not Detected (NotDetected) 01/13/24 16:41 SARS-CoV-2 (PCR) Not Detected (Not Detectd) 01/14/24 01:12 01/14/24 09:00 IDENTIFYING DATA: Patient is a 68-year-old female. Lives alone in a house, has 2 adult children. . Collects social security. HPI: Patient presented to the hospital on 01/12. As per EPS note, "Pt presents involuntary, petitioned via police; "Mariana upset over statements from her daughter and admitted to taking approximately 30 pills of Valium and Ambien and 15 Adderall in an attempt to not wake up. Mariana told EMS that she has several prior suicide attempts." Pt states "I called my counselor to see if my insurance would cover an admission. Pt stressor is she had an argument /c her daughter; "I used to live in [place]. I moved to [place] two years ago because my daughter wanted me to be closer to her. I found out last night that my daughter told me that she and her are thinking about selling their house and and they want to move as far away from me as possible. My daughter is very rastafari and am not. She told me that my gambling is a sin. I couldn't take it anymore. I truly didn't want to wake up so I took a bunch of pills. When I woke up I was s hocked that I was alive so I took some more meds. I want to be on the right meds and be happy and not have so much negativity. If I'm going to live I want to be normal." Pt talked at length about her mental health history beginning in her early 40's when she found out her second was cheating on her; "I had a nervous breakdown and then my suicide attempts began. I haven't been right since. I am not myself anymore. I'm isolated. I'm not happy. I don't go anywhere. I've gained 70 pounds. I started gambling when I lost my best friend five years ago. When I sold my house 2 years ago, I gave my son and daughter $150,000 each and all I ask from them is to give me some time." Pt denies HI, denies Hallucinations and no delusional thoughts verbalized." Upon todays interview, she states her and her daughter had a falling out, because her daughter told her she was moving herself and her family as far away from her as possible. This is after patient moved close to her daughter to be helped out. States last year, she gambled away 84,000 dollars, after her friend . Patient states that she does not think her medication is right for her, she has multiple side effects, including personality changes, and decreased libido. She states that she is so very depressed, and very anxious. She states she wishes she would have been successful at her suicide attempt. She states that she c annot sleep well at night, unless she takes ambien. She also states that she binge eats. Today, patient denies any suicidal or homicidal ideations intent or plan. At this time patient denies any auditory or visual hallucinations. Patient denies any flight of ideas racing thoughts and increased in goal directed behavior. Patient admits to using a nicotine vape. PAST PSYCHIATRIC HISTORY: Patient states that she has had multiple psychiatric admissions, with the last being 01/2023 on this unit. She had her initial appointment at [facility] last week. She is getting her ambien, adderal and valium from [facility] psychiatry. Patient reports several attempts at suicide, by means of overdose on prescription pills. PMH:As per ER note ALLERGIES: as per EMR CHEMICAL DEPENDENCY HISTORY: as per HPI FAMILY PSYCHIATRIC/SUBSTANCE USE HISTORY: The patient's mother and father have depression. There is a family history of schizophrenia with an uncle. SOCIAL HISTORY: Patient was born and raised in [place], [place]. She is twice . She has her GED. She took some college classes [place] [employer] [place] She is currently on disability due to her psychiatric symptoms. She has 2 adult children. She currently lives by herself. She states that she is Yarsanism. She reports no legal problems. She reports no service. MENTAL STATUS EXAM: General Appearance: Patient appears to be stated age is alert, directable, and attempts to cooperate. Patient appears to have fair hygiene and grooming. dressed in a hospital gown, wearing glasses. Behavior: Patient is seated without any agitated behavior. Speech: Patient's speech is fluent and nonpressured. Mood/Affect: Patient reports their mood is depressed and anxious , affect is congruent and constricted. Suicidality/Homicidality: Patient denies having any homicidal ideation intent or plan. [Denies any suicidal ideations intent or plan] Perceptions: Patient denies any visual hallucinations [and denies any auditory hallucinations] Though content/process: [There is no evidence of any delusional thought content and thought process is linear and goal-directed.] Memory and concentration: AOX3, grossly intact for the purposes of this session. Can spell "WORLD" backwards Judgment and insight: [poor] STRENGTHS/WEAKNESSES: strength is that patient is [resilient]. Weakness is that patient [has poor judgment and is impulsive] INTELLECT: [average] IMPRESSIONS: suicide attempt by overdose of psychotropic medications mood disorder, unspecified R/O bipolar disorder Cluster B personality disorder [nicotine dependance] PLAN: -Patient is admitted under [voluntary] status to MHU for stabilization of psychiatric symptoms and safety. Patient has signed [adult voluntary form and] [medication consent] and is placed in patient's chart. -Medications : Will start patient on Geodon 20mg bid for mood stabilization, Zoloft 50mg daily for mood/anxiety, trazodone 25mg qhs for sleep -Ativan and Haldol] PRN for agitation/aggression -Patient was informed of the risks, benefits and side effects of the medication and patient verbally consented to taking the medications. -Internal Medicine consult to perform medical evaluation and physical. -NRT - [nicotine patch] -SW on board for discharge planning. Encourage patient to participate in groups to work on coping skills. 01/14/24 11:50 01/14/24 12:10
[2024-01-14] MEDS: ZIPRASIDONE 20 MG CAP PO SCH (12:19)
[2024-01-14] MEDS: SERTRALINE 50 MG TAB PO SCH (12:19)
[2024-01-14] MEDS: IBUPROFEN 600 MG TAB PO PRN (17:14)
[2024-01-14] MEDS: traZODone HCL 50 MG TAB PO SCH (21:17)
--- NOTE | 2024-01-15 02:15 | P.CONS ---
History of Present Illness - Reason for Consult Consult date: 01/15/24 - History of Present Illness The patient is a 68-year-old female with a PMH of hypothyroidism, hyperlipidemia, who had presented to the emergency room after getting into an argument with her daughter where she had expressed suicidal ideation. The patient was admitted to the mental health unit where she was seen and evaluated. The patient denied any active complaints at the time of interview. She denied experiencing chest discomfort, shortness breath, fever, chills, cough, nausea, vomiting, abdominal pain, diarrhea. The patient denied tobacco, alcohol, or substance use. Review of systems: Pertinent positives and negatives as discussed in HPI, a complete review of systems was performed and all other systems are negative. Physical examination: General: non toxic, no distress, appears at stated age, normal weight Derm: no unusual rashes/lesions, no unusual ecchymoses, warm, dry Head: atraumatic, normocephalic, symmetric Eyes: EOMI, no lid lag, anicteric sclera ENT: Nose and ears atraumatic, no thrush, no pharyngeal erythema Neck: trachea midline, supple Mouth: no lip lesion, mucus membranes moist Cardiovascular: S1S2 reg, no murmur, no edema Lungs: CTA bilateral, no rhonchi, no rales , no accessory muscle use Abdominal: soft, nontender to palpation, no guarding Ext: no gross muscle atrophy, no contractures, Neuro: No gross focal neuro deficits noted Psych: Alert, oriented, appropriate affect Assessment: Chronic additions: Hypothyroidism, hyperlipidemia Depression and suicidal ideation Urine toxicology positive for amphetamines and benzodiazepines Imaging: EKG reviewed showing normal sinus rhythm at [address]/T wave changes noted as reviewed by me. Data Review: Reviewed with glucose 109, WBC count 3.8, hemoglobin 12.6, UA showing large leukocyte esterase with 19 WBC count, with urine toxicology positive for amphetamines and benzodiazepines Plan: Resume patient's home Synthroid and Zocor Defer management of depression and suicidal ideation to the primary psychiatry service Thank you for allowing us to participate in the care of this patient. We will follow peripherally. Do not hesitate to contact us with questions. Someone can be reached from the [facility] hospitalist group at all hours of the day at [phone]. Past Medical History Past Medical History: Thyroid Disorder Additional Past Medical History / Comment(s): Hypothyroidism, surgically induced menopause, lower extremity edema History of Any Multi-Drug Resistant Organisms: Acinetobacter (MDRO) Year Discovered:: 05/2021 MDRO Source:: urine Past Surgical History: Breast Surgery, Hysterectomy Additional Past Surgical History / Comment(s): Total abdominal hysterectomy and bilateral salpingo oophorectomy, breast implants bilaterally, jaw surgery to implant teeth Past Anesthesia/Blood Transfusion Reactions: No Reported Reaction Smoking Status: Vaper - Past Family History Mother Family Medical History: CVA/TIA, Diabetes Mellitus, Hypertension Additional Family Medical History / Comment(s): Mother is alive at age 79. Father Family Medical History: No Reported History, Osteoarthritis (OA) Additional Family Medical History / Comment(s): History of depression. Brother(s) Additional Family Medical History / Comment(s): Patient has 4 brothers with no major medical problems. She has one son and one daughter with no major medical problems. Medications and Allergies Home Medications Medication Instructions Recorded Confirmed Type Furosemide [Lasix] 20 mg PO DAILY 10/28/14 01/13/24 History Levothyroxine Sodium [Synthroid] 137 mcg PO DAILY 01/28/23 01/13/24 History Simvastatin [Zocor] 40 mg PO DAILY 01/28/23 01/13/24 History diazePAM [Valium] 5 mg PO BID PRN 01/28/23 01/13/24 History ARIPiprazole [Abilify] 10 mg PO HS 01/13/24 01/13/24 History Dextroamphetamine/Amphetamine 20 mg PO BID 01/13/24 01/13/24 History [Adderall] Escitalopram [Lexapro] 10 mg PO DAILY 01/13/24 01/13/24 History Zolpidem Tartrate [Ambien Cr] 12.5 mg PO HS 01/13/24 01/13/24 History buPROPion XL [Wellbutrin XL] 300 mg PO DAILY 01/13/24 01/13/24 History Allergies Allergy/AdvReac Type Severity Reaction Status Date / Time amoxicillin Allergy Rash/Hives Verified 01/13/24 17:39 Physical Exam Vitals: Vital Signs Temp Pulse Pulse Resp BP BP Pulse Ox 01/14/24 08:18 18 93 L 01/14/24 08:17 97.6 F 96 134/75 06/04/24 03:49 97.8 F 74 18 167/77 95 01/14/24 03:12 97.9 F 72 17 125/80 97 Results CBC & Chem 7: 01/13/24 15:30 01/13/24 15:30 Labs: Abnormal Lab Results - Last 24 Hours (Table) 01/14/24 Range/Units 10:40 Ur Leukocyte Esterase Large H (Negative) Urine WBC 19 H (0-5) /hpf Urine Bacteria Rare H (None) /hpf
--- NOTE | 2024-01-15 11:12 | P.PN ---
Progress Note - Text Progress Note Date: 01/15/24 Interval History: Patient was seen in her room, and was directable and agreeable to speak with farhad arroyo in the office. Analy states that she has been sleeping since she has taken the medication yesterday claims that she feels too sedated.. Community Music Therapist spoke with the patient about changing her medication to qhs, patient agreeable. Patient states her mood is depressed, but she does want to go home. Community Music Therapist spoke with patient the importance of receiving mental health help, and the patient agreed. Patient is not endorsing any anxiety. She has not been going to groups, because she stated she is feeling too tired . At this time patient denies any suicidal or homical ideations, intent or plan. Patient denies any auditory, visual hallucinations and denies any paranoia or delusions. Patient denies any side effects from the medications and has been compliant with meds. MENTAL STATUS EXAM: General Appearance: Patient appears to be stated age is alert, directable, and attempts to cooperate. Patient appears to have fair hygiene and grooming. dressed in a hospital gown, wearing glasses. Behavior: Patient is seated without any agitated behavior. Speech: Patient's speech is fluent and nonpressured. Mood/Affect: Patient reports their mood is depressed, affect is congruent and constricted. Suicidality/Homicidality: Patient denies having any homicidal ideation intent or plan. [Denies any suicidal ideations intent or plan] Perceptions: Patient denies any visual hallucinations [and denies any auditory hallucinations] Though content/process: [There is no evidence of any delusional thought content and thought process is linear and goal-directed. focused on discharge Memory and concentration: AOX3, grossly intact for the purposes of this session. Judgment and insight: [poor, mildly improving IMPRESSIONS: suicide attempt by overdose of psychotropic medications mood disorder, unspecified R/O bipolar disorder Cluster B personality disorder [nicotine dependance] PLAN: -Patient is admitted under [voluntary] status to MHU for stabilization of psychiatric symptoms and safety. -Medications : decrease Geodon 20mg qhs for mood stabilization, change Zoloft 50mg qhs for mood/anxiety, d/c trazodone -Ativan and Haldol] PRN for agitation/aggression -NRT - nicotine patch -SW on board for discharge planning. Encourage patient to participate in groups to work on coping skills.
[2024-01-15] MEDS: LORazepam 1 MG TAB PO PRN (17:40)
[2024-01-15 19:44] LABS: Chol/HDL Ratio 4.01 Ratio; LDL Cholesterol,Calculated 97.1 mg/dL (0.0-131.0)
[2024-01-15] MEDS: SERTRALINE 50 MG TAB PO SCH (21:00)
[2024-01-15] MEDS: ZIPRASIDONE 20 MG CAP PO SCH (21:00)
[2024-01-15] MEDS: MAGNESIUM HYDROXIDE 2,400 MG/30 ML CUP PO PRN (21:27)
[2024-01-16 06:53] VITALS: TEMP 97.9
--- NOTE | 2024-01-16 11:31 | P.PN ---
Progress Note - Text Progress Note Date: 01/16/24 Interval History: Patient was seen in the hallway, and was directable and agreeable to speak with song writer in the office. Patient stated that she is having quite a bit of back pain today. She states last night she was having quite a bit of anxiety last night, due to the phones not working correctly, but today, she is feeling much better. claims that she is trying to get used to the medication, she is feeling a bit better today in terms of her mood however is still having mild depression and an xiety. she was agreeable to have her zoloft increased for tonight. She states that she does not feel suicidal, nor no longer feels like she wishes she would have succeeded in her suicide attempt. She has been going to groups, At this time patient denies any suicidal or homicidal ideations, intent or plan. Patient denies any auditory, visual hallucinations and denies any paranoia or delusions. Patient denies any side effects from the medications and has been compliant with meds. MENTAL STATUS EXAM: General Appearance: Patient appears to be stated age is alert, directable, and attempts to cooperate. Patient appears to have fair hygiene and grooming. dressed in a hospital gown, wearing glasses. Behavior: Patient is seated without any agitated behavior. attempts to cooperate. Speech: Patient's speech is fluent and nonpressured. Mood/Affect: Patient reports their mood is pretty good, affect is congruent and constricted. improving Suicidality/Homicidality: Patient denies having any homicidal ideation intent or plan. Denies any suicidal ideations intent or plan Perceptions: Patient denies any visual hallucinations [and denies any auditory hallucinations Though content/process: There is no evidence of any delusional thought content and thought process is linear and goal-directed. focused on discharge Memory and concentration: AOX3, grossly intact for the purposes of this session. Judgment and insight: improving IMPRESSIONS: suicide attempt by overdose of psychotropic medications mood disorder, unspecified R/O bipolar disorder Cluster B personality disorder nicotine dependance PLAN: -Patient is admitted under voluntary status to MHU for stabilization of psychiatric symptoms and safety. -Medications : Geodon 20mg qhs for mood stabilization, increase Zoloft 100mg qhs for mood/anxiety -Ativan and Haldol PRN for agitation/aggression -NRT - nicotine patch -SW on board for discharge planning. Encourage patient to participate in groups to work on coping skills. Likely discharge tomorrow, if patient continues to improve
[2024-01-16] MEDS: SENNOSIDES-DOCUSATE SODIUM 1 EACH TAB PO SCH (12:31)
[2024-01-16] MEDS: haloperidoL 5 MG TAB PO PRN (16:22)
[2024-01-16] MEDS: SERTRALINE 100 MG TAB PO SCH (19:56)
[2024-01-17 06:39] VITALS: BP 127/71; PULSE 57
--- NOTE | 2024-01-17 09:56 | P.DS ---
Providers Date of admission: 01/14/24 02:38 Expected date of discharge: 01/17/24 Attending physician: Dave Sibley MD Consults: 01/14/24 02:58 Consult Physician Routine Consulting Provider: Erick Galvan Consult Reason/Comments: For H & P for Medical Follow Up Do you want consulting provider notified?: Yes Primary care physician: Ludivina Magana - Discharge Diagnosis(es) (1) Suicide attempt by other psychotropic drug overdose Current Visit: Yes Status: Acute Priority: High (2) Major depressive disorder without psychotic features Current Visit: Yes Status: Acute Priority: High (3) Cluster B personality disorder Current Visit: Yes Status: Acute Priority: High (4) Nicotine dependence Current Visit: Yes Status: Acute Priority: Low Hospital Course: Admission HPI: Admission note was completed by radio script writer "Patient presented to the hospital on 01/12. As per EPS note, "Pt presents involuntary, petitioned via police; "Mariana upset over statements from her daughter and admitted to taking approximately 30 pills of Valium and Ambien and 15 Adderall in an attempt to not wake up. Mariana told EMS that she has several prior suicide attempts." Pt states "I called my counselor to see if my insurance would cover an admission. Pt stressor is she had an argument /c her daughter; "I used to live in [place]. I moved to [place] two years ago because my daughter wanted me to be closer to her. I found out last night that my daughter told me that she and her are thinking about selling their house and and they want to move as far away from me as possible. My daughter is very synagogue and am not. She told me that my gambling is a sin. I couldn't take it anymore. I truly didn't want to wake up so I took a bunch of pills. When I woke up I was shocked that I was alive so I took some more meds. I want to be on the right meds and be happy and not have so much negativity. If I'm going to live I want to be normal." Pt talked at length about her mental health history beginning in her early 40's when she found out her second was cheating on her; "I had a nervous breakdown and then my suicide attempts began. I haven't been right since. I am not myself anymore. I'm isolated. I'm not happy. I don't go anywhere. I've gained 70 pounds. I started gambling when I lost my best friend five years ago. When I sold my house 2 years ago, I gave my son and daughter $150,000 each and all I ask from them is to give me some time." Pt denies HI, denies Hallucinations and no delusional thoughts verbalized." Upon todays interview, she states her and her daughter had a falling out, because her daughter told her she was moving herself and her family as far away from her as possible. This is after patient moved close to her daughter to be helped out. States last year, she gambled away 84,000 dollars, after her friend . Patient states that she does not think her medication is right for her, she has multiple side effects, including personality changes, and decreased libido. She states that she is so very depressed, and very anxious. She states she wishes she would have been successful at her suicide attempt. She states that she cannot sleep well at night, unless she takes ambien. She also states that she binge eats. Today, patient denies any suicidal or homicidal ideations intent or plan. At this time patient denies any auditory or visual hallucinations. Patient denies any flight of ideas racing thoughts and increased in goal directed behavior. Patient admits to using a nicotine vape." Hospital course: Upon admission to the unit patient was directable and agreeable to commence treatment and signed adult voluntary form. Patient got along well with other patients on the unit and followed unit protocol. Patient was compliant with the medications and denied any side effects throughout hospital course. Patient was started on Geodon 20 mg nightly for mood stabilization, Zoloft increased to dose of 100 mg nightly for mood/anxiety.. Patient spoke of her stressors and engaged in therapy both group and individual. Patient was also seen by medical team for history and physical exam. Throughout the course of the hospitalization patient gradually improved with regards to mood, anxiety, suicidal thoughts, sleep and returned back to their baseline level of functioning. On the day of discharge patient denied any suicidal or homicidal ideations intent or plan denied any auditory or visual hallucinations. Patient endorsed wanting to live for her family and her future. The patient denied any access to guns or weapons. Patient denied any paranoia and did not endorse any delusions. Patient does not have a significant history of substance abuse and was counseled on abstaining from all substances including alcohol and marijuana. Patient was also counseled on the medications and need for regular compliance and was encouraged to follow-up with their outpatient appointment for mental health and also for primary care. Prior to discharge a family meeting will be arranged by social security benefits interviewer to answer any questions and ensure safety upon discharge. Will also help arrange patient's transportation back home. Mental status exam: General Appearance: Patient appears to be short hair, stated age is alert, pleasant, and cooperative. Patient is in no acute distress and has improved hygiene and grooming Behavior: Patient is calmly seated without any agitated behavior. Speech: Patient's speech is fluent and nonpressured. Mood/Affect: Patient reports their mood is "good", affect is congruent and euthymic. Suicidality/Homicidality: Patient denies having any suicidal or homicidal ideation intent or plan. Perceptions: Patient denies any auditory or visual hallucinations. Though content/process: There is no evidence of any delusional thought content and thought process is linear and goal-directed. More future oriented Memory and concentration: AOX3, grossly intact for the purposes of this session. Can spell "WORLD" backwards correctly. Judgment and insight: Chronically poor, however has improved with guarded prognosis Impression: suicide attempt by overdose of psychotropic medications mood disorder, unspecified R/O bipolar disorder Cluster B personality disorder nicotine dependance Plan: -Continue with discharge today as patient has improved and stabilized psychiatrically and is not currently an imminent threat to herself and/or others. Patient will remain at chronically elevated risk for harm to self and/or others due to her impulsivity. -Continue medications: Geodon 20 mg daily at bedtime for mood stabilization, Geodon 100 mg nightly for mood/anxiety. Will give a 14-day supply with 1 refill due to patient's high risk of overdosing -Patient was counseled on the need for medication compliance and appropriate follow-up at mental health and also primary care for medical issues. Patient verbalized understanding and agreed. -Social work to help coordinate patient's discharge today back home. Social work also to arrange for patients follow up appointments with [facility] for psychiatric care along with follow up with primary care provider. -Patient counseled on abstaining from recreational drugs and marijuana and alcohol. Was informed/educated on the adverse effects on their physical and mental health. Patient verbally agreed and understood. -Patient was instructed to return to the hospital or seek immediate medical care if their psychiatric or medical symptoms do worsen or reoccur. Allergies Allergy/AdvReac Type Severity Reaction Status Date / Time amoxicillin Allergy Rash/Hives Verified 01/13/24 17:39 Laboratory Results WBC 8.8 k/uL (3.8-10.6) 01/13/24 15:30 RBC 4.06 m/uL (3.80-5.40) 01/13/24 15:30 Hgb 12.6 gm/dL (11.4-16.0) 01/13/24 15:30 Hct 39.3 % (34.0-46.0) 01/13/24 15:30 MCV 96.8 fL (80.0-100.0) 01/13/24 15:30 MCH 31.1 pg (25.0-35.0) 01/13/24 15:30 MCHC 32.1 g/dL (31.0-37.0) 01/13/24 15:30 RDW 13.5 % (11.5-15.5) 01/13/24 15:30 Plt Count 262 k/uL (150-450) 01/13/24 15:30 MPV 7.5 01/13/24 15:30 Sodium 138 mmol/L (137-145) 01/13/24 15:30 Potassium 4.8 mmol/L (3.5-5.1) 01/13/24 15:30 Chloride 106 mmol/L (98-107) 01/13/24 15:30 Carbon Dioxide 27 mmol/L (22-30) 01/13/24 15:30 Anion Gap 5 mmol/L 01/13/24 15:30 BUN 13 mg/dL (7-17) 01/13/24 15:30 Creatinine 0.79 mg/dL (0.52-1.04) 01/13/24 15:30 Est GFR (CKD-EPI)AfAm >90 (>60 ml/min/1.73 sqM) 01/13/24 15:30 Est GFR (CKD-EPI)NonAf 78 (>60 ml/min/1.73 sqM) 01/13/24 15:30 Glucose 109 mg/dL (74-99) H 01/13/24 15:[address] Glu mg/dL 134 mg/dL 01/15/24 13:18 Hemoglobin A1c 6.3 % (<=6.0) H 01/15/24 13:18 Calcium 9.2 mg/dL (8.4-10.2) 01/13/24 15:30 Magnesium 2.2 mg/dL (1.6-2.3) 01/13/24 15:30 Total Bilirubin 0.6 mg/dL (0.2-1.3) 01/13/24 15:30 AST 25 U/L (14-36) 01/13/24 15:30 ALT 20 U/L (4-34) 01/13/24 15:30 Alkaline Phosphatase 76 U/L (38-126) 01/13/24 15:30 Total Protein 7.4 g/dL (6.3-8.2) 01/13/24 15:30 Albumin 4.1 g/dL (3.5-5.0) 01/13/24 15:30 Triglycerides 224.00 mg/dL (0.00-149.00) H 01/15/24 13:18 Cholesterol 189.00 mg/dL (0.00-200.00) 01/15/24 13:18 LDL Cholesterol, Calc 97.1 mg/dL (0.0-131.0) 01/15/24 13:18 VLDL Cholesterol, Calc 44.80 mg/dL (5.00-40.00) H 01/15/24 13:18 HDL Cholesterol 47.10 mg/dL (40.00-60.00) 01/15/24 13:18 Cholesterol/HDL Ratio 4.01 Ratio 01/15/24 13:18 TSH 0.945 mIU/L (0.465-4.680) 01/15/24 13:18 Urine Color Colorless 01/14/24 10:40 Urine Appearance Clear (Clear) 01/14/24 10:40 Urine pH 5.5 (5.0-8.0) 01/14/24 10:40 Ur Specific [place] 1.002 (1.001-1.035) 01/14/24 10:40 Urine Protein Negative (Negative) 01/14/24 10:40 Urine Glucose (UA) Negative (Negative) 01/14/24 10:40 Urine Ketones Negative (Negative) 01/14/24 10:40 Urine Blood Negative (Negative) 01/14/24 10:40 Urine Nitrite Negative (Negative) 01/14/24 10:40 Urine Bilirubin Negative (Negative) 01/14/24 10:40 Urine Urobilinogen <2.0 mg/dL (<2.0) 01/14/24 10:40 Ur Leukocyte Esterase Large (Negative) H 01/14/24 10:40 Urine RBC 2 /hpf (0-5) 01/14/24 10:40 Urine WBC 19 /hpf (0-5) H 01/14/24 10:40 Ur Squamous Epith Cells 2 /hpf (0-4) 01/14/24 10:40 Urine Bacteria Rare /hpf (None) H 01/14/24 10:40 Salicylates <1.0 mg/dL 01/13/24 15:30 Urine Opiates Screen Not Detected (NotDetected) 01/13/24 16:41 Ur Oxycodone Screen Not Detected (NotDetected) 01/13/24 16:41 Urine Methadone Screen Not Detected (NotDetected) 01/13/24 16:41 Acetaminophen <10.0 ug/mL 01/13/24 15:30 Ur Barbiturates Screen Not Detected (NotDetected) 01/13/24 16:41 U Tricyclic Antidepress Not Detected (NotDetected) 01/13/24 16:41 Ur Phencyclidine Scrn Not Detected (NotDetected) 01/13/24 16:41 Ur Amphetamines Screen Detected (NotDetected) H 01/13/24 16:41 U Methamphetamines Scrn Not Detected (NotDetected) 01/13/24 16:41 U Benzodiazepines Scrn Detected (NotDetected) H 01/13/24 16:41 Urine Cocaine Screen Not Detected (NotDetected) 01/13/24 16:41 U Marijuana (THC) Screen Not Detected (NotDetected) 01/13/24 16:41 SARS-CoV-2 (PCR) Not Detected (Not Detectd) 01/14/24 01:12 Vital Signs Temp 97.9 F 01/17/24 06:00 Pulse 57 L 01/17/24 06:00 Resp 18 01/17/24 06:00 BP 127/71 01/17/24 06:00 Pulse Ox 95 01/17/24 06:00 FiO2 Patient Condition at Discharge: Stable Plan - Discharge Summary Discharge Rx Participant: Yes New Discharge Prescriptions: New Nicotine 14Mg/24Hr Patch [Habitrol] 1 patch TRANSDERM DAILY 14 Days #14 patch Ziprasidone [Geodon] 20 mg PO HS 14 Days #14 cap Sennosides-Docusate Sodium [Senokot-S] 1 each PO DAILY 30 Days #30 tab Sertraline [Zoloft] 100 mg PO HS 14 Days #14 tab Continue Simvastatin [Zocor] 40 mg PO DAILY Furosemide [Lasix] 20 mg PO DAILY 14 Days #14 tab Levothyroxine Sodium [Synthroid] 137 mcg PO DAILY Discontinued diazePAM [Valium] 5 mg PO BID PRN PRN Reason: Anxiety buPROPion XL [Wellbutrin XL] 300 mg PO DAILY Zolpidem Tartrate [Ambien Cr] 12.5 mg PO HS ARIPiprazole [Abilify] 10 mg PO HS Escitalopram [Lexapro] 10 mg PO DAILY Dextroamphetamine/Amphetamine [Adderall] 20 mg PO BID Discharge Medication List Levothyroxine Sodium [Synthroid] 137 mcg PO DAILY 01/28/23 [History] Simvastatin [Zocor] 40 mg PO DAILY 01/28/23 [History] Furosemide [Lasix] 20 mg PO DAILY 14 Days #14 tab 01/17/24 [Rx] Nicotine 14Mg/24Hr Patch [Habitrol] 1 patch TRANSDERM DAILY 14 Days #14 patch 01/17/24 [Rx] Sennosides-Docusate Sodium [Senokot-S] 1 each PO DAILY 30 Days #30 tab 01/17/24 [Rx] Sertraline [Zoloft] 100 mg PO HS 14 Days #14 tab 01/17/24 [Rx] Ziprasidone [Geodon] 20 mg PO HS 14 Days #14 cap 01/17/24 [Rx] Follow up Appointment(s)/Referral(s): [facility] [Outside] - 01/20/24 1:00 pm (01/20/2024 1:00PM - 2:00PM SHAYNE PAYTON 01/27/2024 8:00AM - 9:00AM [facility] ) None,Stated [REFERRING] - 1-2 days Activity/Diet/Wound Care/Special Instructions: Avoid the use of street drugs and alcohol. Take all medications as prescribed. When you are in need of refills on your medications, please contact your medical provider and/or outpatient psychiatrist/provider to have this done. Please go to your scheduled outpatient appointment for aftercare treatment. If symptoms return or become worse, call the crisis line at and/or go to the nearest emergency room for evaluation. National Suicide Hotline 988 Discharge Disposition: HOME SELF-CARE
== END 2024-01-17 14:23 | disposition home or self-care (01) | DRG 918 ==
LOC: EC 14:22 → 3MHU 01-14 02:38
PROVIDERS: ADMIT Psychiatry & Neurology Psychiatry; ATTEND Psychiatry & Neurology Psychiatry
DX: T50.901A Poisoning by unspecified drugs, medicaments and biological substances, accidental (unintentional), initial encounter (principal); F31.30 Bipolar disorder, current episode depressed, mild or moderate severity, unspecified; E03.9 Hypothyroidism, unspecified; E78.5 Hyperlipidemia, unspecified; F17.210 Nicotine dependence, cigarettes, uncomplicated; F19.94 Other psychoactive substance use, unspecified with psychoactive substance-induced mood disorder; F25.9 Schizoaffective disorder, unspecified; Z79.890 Hormone replacement therapy; Z79.899 Other long term (current) drug therapy; Z81.8 Family history of other mental and behavioral disorders; Z91.51 Personal history of suicidal behavior; Z98.82 Breast implant status; Z90.79 Acquired absence of other genital organ(s); Z90.722 Acquired absence of ovaries, bilateral; Z60.2 Problems related to living alone; Z63.5 Disruption of family by separation and divorce; Z71.6 Tobacco abuse counseling; Z88.0 Allergy status to penicillin
CPT/HCPCS: 36415; 80053; 80061; 80143; 80179; 80306; 81001; 83036; 83735; 84443; 85027; 87635; 93005; 99291

== ENCOUNTER → 2024-07-29 | Outpatient (CLI) | payer MEDICARE ==
--- NOTE | 2024-07-29 13:58 | CT ---
INDICATION: Patient age:Female; 68 years old; Reason for study: [facility] Protocol for hip/knee replacement, M25.561 PAIN IN RIGHT KNEE; PHH. COMPARISON: None TECHNIQUE: Thin section axial CT imaging of the entire right lower extremity was performed per [facility] protocol, wi thout the administration of IV contrast. Additional axial images of the bilateral hips and ankles wit h other knee were also obtained. Reformatted images in coronal and sagittal views obtained. FINDINGS: There is no evidence of acute fracture or dislocation. The hips are grossly unremarkable. Degenerative changes of the pubic symphysis. The right knee demonstrates tricompartmental joint space narrowing with marginal osteophytosis and anthony bchondral cystic changes. This is most pronounced involving the medial tibiofemoral joint and patello femoral joint spaces. Consistent with moderate osteoarthritic change. No sizable joint effusion. The ankles grossly unremarkable. Tiny bilateral plantar calcaneal enthesophytes. The visualized soft tissues appear grossly unremarkable within the limits of unenhanced CT. IMPRESSION: 1. [facility] protocol for right knee joint replacement. [facility], , 07/29/2024 1:56 PM
== END | disposition home or self-care (01) ==
LOC: RADCTMAIN 07-02 10:43
PROVIDERS: ATTEND Orthopaedic Surgery
DX: M17.11 Unilateral primary osteoarthritis, right knee (principal); Z96.651 Presence of right artificial knee joint

== ENCOUNTER → 2024-07-30 | Outpatient (CLI) | payer MEDICARE ==
[2024-07-30 15:05] LABS: INR 0.9 (<1.2); Prothrombin Time 10.5 sec (10.0-12.5)
[2024-07-30 15:12] LABS: Partial Thromboplastin Time 21.6 sec (22.0-30.0)
[2024-07-30 19:24] LABS: HCT 39.4 % (37.2-46.3); HGB 12.9 g/dL (12.0-15.0); MCH 29.9 pg (27.0-32.0); MCHC 32.7 g/dL (32.0-37.0); MCV 91.4 FL (80.0-97.0); Mean Platelet Volume 10.1 FL (9.5-12.2); NRBC Per 100 WBC 0 X 10*3/uL (0.00-0.01); Platelet Count 260 X 10*3/uL (140-440); RBC 4.31 X 10*6/uL (4.10-5.20); RDW 14.7 % (11.5-14.5); WBC 8.94 X 10*3/uL (4.50-10.00)
[2024-07-30 19:26] LABS: BUN/Creat Ratio 9.82 Ratio (12.00-20.00); Blood Urea Nitrogen 10.8 mg/dL (9.0-27.0); Carbon Dioxide 23.6 mmol/L (21.6-31.8); Chloride 104 mmol/L (96-109); Glucose 112 mg/dL (70-110); Potassium 4.1 mmol/L (3.5-5.5); Sodium 140 mmol/L (135-145)
[2024-07-30 19:27] LABS: ALT 19 U/L (8-44); AST 12 U/L (13-35); Albumin 4.1 g/dL (3.8-4.9); Albumin/Globulin Ratio 1.24 Ratio (1.60-3.17); Alkaline Phosphatase 114 U/L (41-126); Calcium 9.3 mg/dL (8.7-10.3); Globulin 3.3 g/dL (1.6-3.3); Total Bilirubin <0.2 mg/dL (0.3-1.2); Total Protein 7.4 g/dL (6.2-8.2)
== END | disposition home or self-care (01) ==
LOC: LABPAT 14:08
PROVIDERS: ATTEND Orthopaedic Surgery
DX: Z01.818 Encounter for other preprocedural examination (principal); Z22.322 Carrier or suspected carrier of Methicillin resistant Staphylococcus aureus; E11.9 Type 2 diabetes mellitus without complications; M17.11 Unilateral primary osteoarthritis, right knee
CPT/HCPCS: 80053; 83036; 85027; 85610; 85730; 87070; 93005

== ENCOUNTER 2024-08-14 08:00 | Day surgery (SDC) | payer MEDICARE, OTHER ==
[~2024-08-14 08:00] MED LIST: HYDROmorphone 0.5 MG/0.5 ML SYRINGE IVP PRN; LIDOCAINE 1% (10MG/ML) FOR IV START INTRADERMA PRN; ONDANSETRON 4 MG/2 ML VIAL IVP PRN; TRANEXAMIC 1,000 MG/100ML-NACL 1,000 MG in SALINE 1 100ML.BAG IV PRN; TRANEXAMIC 1,000 MG/100ML-NACL 1,000 MG in SALINE 1 100ML.BAG IVPB PRN; fentaNYL (PF) 50 MCG/ML 2 ML AMP IVP PRN
[2024-08-14] MEDS: IV FLUID CONTINUATION 1,000 ML IV ONE ×2 (08:30→11:56)
[2024-08-14] MEDS: ACETAMINOPHEN TAB 500 MG TAB PO PRN (08:41)
[2024-08-14] MEDS: DOCUSATE 100 MG CAP PO PRN (08:41)
[2024-08-14] MEDS: oxyCODONE ER 10 MG TAB.ER.12H PO PRN (08:41)
[2024-08-14] MEDS: LACTATED RINGERS 1,000 ML IV SCH (08:51)
[2024-08-14] MEDS: MIDAZOLAM 2 MG/2 ML VIAL IV PRN (08:54)
--- NOTE | 2024-08-14 09:07 | P.ANPRN ---
Procedure Note - Anesthesia - Nerve Block Performed Right iPack Single Time Out Performed: Yes Date of Procedure: 08/14/24 Procedure Start Time: 08:53 Procedure Stop Time: 08:58 Location of Patient: PreOp Indication: Acute Post-Operative Pain, Analgesia, Requested by Surgeon Sedation Type: Sedate with meaningful contact maintained Preparation: Sterile Prep Position: Left Lateral Catheter: None Needle Types: Pajunk Needle Gauge: 21 Ultrasound used to visualize needle placement: Yes Ultrasound used to observe medication spread: Yes Injectate: 0.5% Ropivacaine (see comment for volume) ([id number]) Blood Aspirated: No Pain Paresthesia on Injection Noted: No Resistance on Injection: Normal Image Stored and Saved: Yes Events: Uneventful and Well Tolerated
--- NOTE | 2024-08-14 09:09 | P.ANPRN ---
Procedure Note - Anesthesia - Nerve Block Performed Right Adductor Canal Single Time Out Performed: Yes Date of Procedure: 08/14/24 Procedure Start Time: 08:58 Procedure Stop Time: 09:03 Location of Patient: PreOp Indication: Acute Post-Operative Pain, Analgesia, Requested by Surgeon Sedation Type: Sedate with meaningful contact maintained Preparation: Sterile Prep Position: Supine Catheter: None Needle Types: Pajunk Needle Gauge: 21 Ultrasound used to visualize needle placement: Yes Ultrasound used to observe medication spread: Yes Injectate: 0.5% Ropivacaine (see comment for volume) ([id number]) Blood Aspirated: No Pain Paresthesia on Injection Noted: No Resistance on Injection: Normal Image Stored and Saved: Yes Events: Uneventful and Well Tolerated
[2024-08-14] MEDS: VANCOMYCIN 1,000 MG in SODIUM CHLORIDE 0.9% 250 ML IVPB PRN (09:17)
[2024-08-14] MEDS: DEXAMETHASONE SOD PHOSPHATE 10 MG/ML 1 ML VIAL IV PRN (09:17)
[2024-08-14] MEDS: KETOROLAC 15 MG/ML 1 ML VIAL IVP PRN (09:17)
[2024-08-14] MEDS: ONDANSETRON 4 MG/2 ML VIAL IVP ONE (09:17)
[2024-08-14] MEDS: FAMOTIDINE 20 MG/2 ML VIAL IVP PRN (09:17)
[2024-08-14] MEDS: ROPIVACAINE/EPI/CLONIDINE/KET 50 ML SYRINGE MISCELLANE PRN (10:27)
[2024-08-14] MEDS ORDERED: TEMAZEPAM 15 MG CAP PO PRN (11:39)
[2024-08-14] MEDS ORDERED: NA PHOS,M-B/NA PHOS,DI-BA 133 ML ENEMA RECTAL PRN (11:39)
[2024-08-14] MEDS ORDERED: HYDROmorphone 0.5 MG/0.5 ML SYRINGE IVP PRN (11:39)
[2024-08-14] MEDS ORDERED: HYDROcodone/APAP 5-325MG 1 EACH TAB PO PRN (11:39)
[2024-08-14] MEDS ORDERED: NALOXONE 0.4 MG/ML 1 ML VIAL IV PRN (11:39)
[2024-08-14] MEDS ORDERED: ONDANSETRON 4 MG/2 ML VIAL IVP PRN (11:39)
[2024-08-14] MEDS ORDERED: HYDROmorphone 1 MG/ML 1 ML SYRINGE IVP PRN (11:39)
[2024-08-14] MEDS ORDERED: hydrOXYzine pamoate 25 MG CAP PO PRN (11:39)
[2024-08-14] MEDS ORDERED: diazePAM 5 MG TAB PO PRN (11:39)
[2024-08-14] MEDS ORDERED: bisacodyL 10 MG SUPP RECTAL PRN (11:39)
[2024-08-14] MEDS ORDERED: MAGNESIUM HYDROXIDE 2,400 MG/30 ML CUP PO PRN (11:39)
--- NOTE | 2024-08-14 11:39 | P.OP ---
Date of Procedure: 08/14/24 Preoperative Diagnosis: 1. severe right knee osteoarthritis 2. BMI 37 Postoperative Diagnosis: Same Procedure(s) Performed: 1. Right total knee arthroplasty 2. Computer assisted musculoskeletal navigation using CT/MRI images Implants: 1. [employer] CR Femur Size #3 2. [employer] [place] Tibial Base Size #3 3. [employer] CS poly Size #3, 9-mm 4. [employer] all poly patella, Size #29 Anesthesia: CHERELLE, regional Surgeon: Lavelle Hooper Factory Supervisor #1: Tommy Montero Estimated Blood Loss (ml): 100 IV fluids (ml): 800 Pathology: none sent Condition: stable Disposition: PACU Indications for Procedure: I met with the patient preoperatively in the office setting and discussed treatment of their symptomatic knee arthritis. They failed a long course of nonsurgical treatment and elected to proceed with an elective total knee replacement. I discussed the potential risks and complications at length and gave them ample time to ask questions. Risks discussed included: risks from anesthesia, superficial site surgical infection, acute and/or chronic periprosthetic joint infection, delayed wound healing, drainage, wound necrosis, instability, stiffness, stiffness requiring manipulation and/or revision surgery, damage to local blood vessels or nerves, aseptic loosening of the implants, extensor mechanism issues including disruption, patellar maltracking, avascular necrosis etc., continued or worsened knee pain, generalized dissatisfaction with surgical outcome, need for revision surgery, an inability to regain preinjury level of function, DVT, PE, other medical complications, and possibly loss of life or limb. The patient voiced their understanding that while these are the most common complications other less common complications are possible. They provided both their verbal and written consent to go forward with surgery. Operative Findings: severe tricompartmental osteoarthritis Description of Procedure: The patient was identified in preoperative holding and the correct operative extremity was verified and marked with a marker. I reviewed the consent form with the patient at length. All of their questions were answered. The patient was given a block by anesthesia. They were then brought back to the operating room. They were transferred onto the operating room table where a general an esthetic, preoperative antibiotics, and tranexamic acid were administered by anesthesia. A tourniquet was applied to the proximal aspect of the operative extremity. The contralateral extremity was padded under the heel and secured to the operating room table with a nonsterile blue towel and tape. The ipsilateral arm was carefully draped across the patient's chest and secured with a pillow and foam. A post was applied over the lateral aspect of the ipsilateral thigh and a bolster was placed under the ipsilateral foot. I verified that the operative extremity was stable and the knee was flexed to 90. The operative extremity was then placed in a leg regalado, nonsterile drapes were applied, and the extremity was prepped and draped sterilely in the standard sterile fashion. Prior to starting surgery timeout was performed identifying the correct patient, operative extremity, and procedure. The leg was then elevated, exsanguinated with an Esmarch bandage, and the tourniquet was inflated. An anterior midline incision was made sharply with a scalpel. Once I had dissected deep to the superficial fascial layer medial and lateral flaps were elevated. A medial parapatellar arthrotomy was created. Upon opening the knee joint there were diffuse arthritic changes in all 3 compartments. The anterior horn of the medial meniscus were sharply released and a medial release was performed around the posterior medial corner of the knee to facilitate retractor placement. The fat pad was excised with electrocautery. The patella was found to be severely arthritic and a provisional cut was made with a sagittal saw to facilitate mobilization of the extensor mechanism during the procedure. Remnants of the ACL and PCL were then excised from the notch. 4 mm pins were then placed within the incision in the medial distal femur and proximal tibia. Arrays were applied to the pins and I verified they were completely tightened. The knee was then registered with the [employer] robot and manipulations in implant position were made to balance the knee and opitmize implant position. Using the Genaro robotic saw all cuts were made in accordance with our plan. After all bony fragments had been removed the cuts were verified with the planar probe. The tibia was then subluxed forward and sized. The knee was brought into flexion and a lamina cabana attendant was placed to allow removal of the meniscal remnants both medially and laterally as well as posterior osteophytes. Local anesthetic was then infiltrated around the joint capsule. Trial implants were then placed within the knee. Range of motion and collateral ligament tension was then evaluated. Adjustments in implant size and position were then made accordingly. Once the knee was felt to be appropriately balanced the Genaro pins were removed. The patella was then recut, sized, and punched. A trial patellar button was then placed. With the trial components in place, the patella tracked midline. The femur was then drilled and the trial component removed. The trial tibial component was then appropriately rotated, pinned, and prepared for the keel. All trial components were then removed from the knee. The knee was thoroughly irrigated with pulsatile lavage. Cement was prepared via vacuum mixing in a bowl on the back table. I then hand pressurized cement into the femur and tibia and placed the implants beginning with the tibial base tray and poly liner, femoral component, and finally the patellar button. All extruded cement was removed including from the pin sites. Once the cement had hardened the knee was evaluated one final time with the final polyethylene liner in place. The knee had full extension and flexion and felt stable to varus and valgus stress throughout the arc of motion. The tourniquet was released and with the tourniquet down the patella tracked midline. All bleeders were controlled with electrocautery. The knee was then soaked for 3 minutes with a dilute Betadine soak. The knee was thoroughly irrigated using 3 L of sterile saline and pulsatile lavage. The extensor mechanism was then reapproximated using pop off Vicryl sutures followed by a running barbed suture. The knee was then closed in layers with a 0 strata fix for the deep fascial layer, 2-0 strata fix for the superficial subcutaneous layer and Monocryl and Steri-Strips for the skin. A sterile dressing was applied. I verified that all instrument, sponge, and sharp counts were correct. The patient was then transferred off the operating room table, extubated, and brought to recovery having tolerated the procedure well. Tommy Montero PA-C was required as a skilled pastoral assistant for patient positioning, draping, exposure, retraction, closure of wound and application of dressing PLAN: The patient can weight-bear as tolerated on the operative extremity. DVT prophylaxis with aspirin 81 mg twice a day based on preoperative risk stratification. Internal medicine for perioperative medical management. 2 doses of post-operative antibiotics. Physical therapy for gait training. Follow-up in the office in 2 weeks for wound check and x-rays of the knee including an AP and lateral.
--- NOTE | 2024-08-14 13:03 | XR ---
EXAMINATION TYPE: XR knee limited RT DATE OF EXAM: 08/14/2024 12:33 PM COMPARISON: None. CLINICAL INDICATION: Female, 68 years old with history of Evaluation for Postop abnormality and align ment, pain TECHNIQUE: 2 view(s) obtained. FINDINGS: Tibial femoral components of placed. Postsurgical soft tissue changes are evident. No large joint eff usion is evident. No acute fracture or dislocation evident. IMPRESSION: 1. No acute fracture post right knee replacement [facility], , 08/14/2024 1:01 PM
[2024-08-14] MEDS: IPRATROPIUM-ALBUTEROL 3 ML NEB INHALATION STA (13:14)
[2024-08-14] MEDS: DEXAMETHASONE SOD PHOSPHATE 4 MG/ML 1 ML VIAL IV ONE (13:37)
[2024-08-14] MEDS: SODIUM CHLORIDE 0.9% 1,000 ML IV SCH (14:12)
[2024-08-14] MEDS ORDERED: SENNOSIDES-DOCUSATE SODIUM 1 EACH TAB PO PRN (16:13)
--- NOTE | 2024-08-14 18:27 | P.CONS ---
History of Present Illness - Reason for Consult Consult date: 08/14/24 - History of Present Illness 68 year old F with PMH of hypothyroidism, HLD, insomnia and depression presents to [facility] [place] for elective surgery. She underwent R total knee arthroplasty with Dr. Hooper. [facility] Physicians consulted for medical management of this patient. She reports well controlled pain at this time. Urinating freely. No other complaints. Lives at home alone. No stairs. General: non toxic, no distress, appears at stated age Derm: warm, dry Head: atraumatic, normocephalic, symmetric Eyes: EOMI, no lid lag, anicteric sclera Mouth: no lip lesion, mucus membranes moist Cardiovascular: S1S2 reg, no murmur Abdominal: soft, no guarding, no appreciable organomegaly Ext: no gross muscle atrophy, no edema, no contractures Neuro: no focal neuro deficits Psych: Alert, oriented, appropriate affect Based on my assessment of this patient, this patient meets a high complexity level of care. Depression + Insomnia: Ambien 12.5 mg PO QHS. Hydroxyzine 50 mg PO QHS. Olanzapine 10 mg PO QHS. Sertraline 100 mg PO QHS. Hypothyroidism: Synthroid 137 mcg PO QD. Dyslipidemia: Crestor 20 mg PO QD. CODE STATUS: FULL CODE. DVT Prophylaxis: Lovenox SQ GI Prophylaxis: Designated medical POA if patient is not able to make medical decisions for themselves: I have reviewed the following travel sales consultant notes: Operative note. I have reviewed the results of the following tests: As above. I have ordered the following tests: As above. I have discussed the care of this patient with the following independent historian: I have independently interpreted the following test below: I have discussed the management of this patient with the following physician: Past Medical History Past Medical History: Hyperlipidemia, Osteoarthritis (OA), Thyroid Disorder Additional Past Medical History / Comment(s): Hypothyroidism, surgically induced menopause, occasional lower extremity edema History of Any Multi-Drug Resistant Organisms: Acinetobacter (MDRO) Year Discovered:: 05/2021 MDRO Source:: urine Past Surgical History: Breast Surgery, Hysterectomy Additional Past Surgical History / Comment(s): Total abdominal hysterectomy and bilateral salpingo oophorectomy, breast implants bilaterally, jaw surgery to implant teeth. left arm surgery Past Anesthesia/Blood Transfusion Reactions: No Reported Reaction Smoking Status: Vaper - Past Family History Mother Family Medical History: CVA/TIA, Diabetes Mellitus, Hypertension Additional Family Medical History / Comment(s): Mother is alive at age 79. Father Family Medical History: No Reported History, Osteoarthritis (OA) Additional Family Medical History / Comment(s): History of depression. Brother(s) Additional Family Medical History / Comment(s): Patient has 4 brothers with no major medical problems. She has one son and one daughter with no major medical problems. Medications and Allergies Home Medications Medication Instructions Recorded Confirmed Type Levothyroxine Sodium [Synthroid] 137 mcg PO DAILY 01/28/23 08/14/24 History Sertraline [Zoloft] 100 mg PO HS 14 Days #14 tab 01/17/24 08/14/24 Rx Unk Multi Vitamin 1 tab PO DAILY 08/11/24 08/14/24 History Furosemide [Lasix] 20 mg PO DIRECTED PRN 08/11/24 08/14/24 History Ibuprofen [Motrin Ib] 800 mg PO DIRECTED PRN 08/11/24 08/14/24 History OLANZapine [Olanzapine] 10 mg PO HS 08/11/24 08/14/24 History Rosuvastatin Calcium 20 mg PO DAILY 08/11/24 08/14/24 History Sennosides-Docusate Sodium 1 each PO DAILY PRN 08/11/24 08/14/24 History [Senokot-S] Zolpidem Tartrate [Ambien Cr] 12.5 mg PO HS 08/11/24 08/14/24 History hydrOXYzine pamoate [Vistaril] 50 mg PO HS 08/11/24 08/14/24 History Allergies Allergy/AdvReac Type Severity Reaction Status Date / Time amoxicillin Allergy Rash/Hives Verified 08/14/24 08:39 Physical Exam Vitals: Vital Signs Temp Pulse Pulse Resp BP BP Pulse Ox 08/14/24 16:18 96 08/14/24 14:00 98.3 F 83 17 131/77 94 L 08/14/24 13:13 82 17 148/68 92 L 08/14/24 12:57 84 18 138/66 93 L 08/14/24 12:42 86 16 144/71 92 L 08/14/24 12:27 86 16 145/68 94 L 08/14/24 12:12 86 17 144/66 95 08/14/24 11:56 97.7 F 98 15 164/82 93 L 08/14/24 09:19 65 16 117/66 97 08/14/24 08:38 97.4 F L 68 16 143/70 95 Intake and Output 08/14/24 08/14/24 08/14/24 06:59 14:59 22:59 Intake Total 1150 120 Output Total 100 Balance 1050 120 Intake: IV 1150 Oral 120 Output: Estimated Blood Loss 100 Other: # Voids 1 Weight 101.8 kg
[2024-08-14] MEDS: OLANZapine 10 MG TAB PO SCH (20:39)
[2024-08-14] MEDS: SERTRALINE 100 MG TAB PO SCH (20:39)
[2024-08-14] MEDS: ZOLPIDEM 5 MG TAB PO SCH (20:39)
[2024-08-14] MEDS: ASPIRIN 81 MG PO SCH (20:39)
[2024-08-14] MEDS: SENNOSIDES-DOCUSATE SODIUM 1 EACH TAB PO SCH (20:39)
[2024-08-14] MEDS: HYDROmorphone 0.5 MG/0.5 ML SYRINGE IVP PRN (20:40)
[2024-08-14] MEDS ORDERED: hydrOXYzine pamoate 25 MG CAP PO SCH (21:00)
[2024-08-15] MEDS: HYDROcodone/APAP 10-325MG 1 EACH TAB PO PRN (03:54)
[2024-08-15] MEDS: LEVOTHYROXINE 137 MCG TAB PO SCH (06:22)
[2024-08-15] MEDS: ATORVASTATIN 40 MG TAB PO SCH (08:12)
[2024-08-15] MEDS: MELOXICAM 7.5 MG TAB PO SCH (08:12)
[2024-08-15 09:51] LABS: HCT 30.3 % (37.2-46.3); HGB 9.4 g/dL (12.0-15.0); MCV 96.8 FL (80.0-97.0); Mean Platelet Volume 9.9 FL (9.5-12.2); NRBC Per 100 WBC 0 X 10*3/uL (0.00-0.01); Platelet Count 242 X 10*3/uL (140-440); RBC 3.13 X 10*6/uL (4.10-5.20); RDW 15.8 % (11.5-14.5); WBC 11.86 X 10*3/uL (4.50-10.00)
--- NOTE | 2024-08-15 09:54 | P.PN ---
Subjective patient is doing well this morning. Her pain is controlled. She continues to have concerns about postoperative pain. She's been up to the bathroom in his work with physical therapy. Should have strum trouble descending stairs. Objective - Vital Signs Vital signs: Vital Signs Temp 97.6 F 08/15/24 07:33 Pulse 69 08/15/24 07:33 Resp 18 08/15/24 07:33 BP 123/67 08/15/24 07:33 Pulse Ox 93 L 08/15/24 07:33 FiO2 Intake & Output 08/14/24 08/15/24 08/15/24 18:59 06:59 18:59 Intake Total 1270 Output Total 100 Balance 1170 Weight 101.8 kg Intake: IV 1150 Oral 120 Output: Estimated Blood Loss 100 Other: Voiding Method Toilet # Voids 1 1 - Exam The patient is resting comfortably in the bed. A focused examination of the operative leg was conducted. On inspection there is a clean-appearing dressing over the knee. There is no drainage or strike t hrough. The thigh and calf are soft. Femoral nerve function is intact. Motor and sensory function are intact in the foot and ankle. The tips of the toes are warm and well perfused with brisk capillary refill. - Labs CBC & Chem 7: 08/15/24 05:58 Labs: Abnormal Lab Results - Last 24 Hours (Table) 08/15/24 Range/Units 05:58 WBC 11.86 H (4.50-10.00) X 10*3/uL RBC 3.13 L (4.10-5.20) X 10*6/uL Hgb 9.4 L (12.0-15.0) g/dL Hct 30.3 L (37.2-46.3) % MCHC 31.0 L (32.0-37.0) g/dL RDW 15.8 H (11.5-14.5) % Assessment and Plan Assessment: postoperative day #1 status post right total knee replacement Plan: 1. Weightbearing as tolerated on the operative extremity. Up with assistance. 2. DVT prophylaxis with aspirin 81 mg twice a day 3. Physical therapy for gait training and mobilization 4. Internal medicine for perioperative medical management 5. PT for gait training 6. Disposition: I would like to keep the patient an additional 24-48 hours for pain control and additional physical therapy.
[2024-08-15 11:07] LABS: Basophils # (A) 0.02 X 10*3/uL (0.00-0.10); Basophils % (A) 0.2 %; Eosinophils # (A) 0 X 10*3/uL (0.04-0.35); Eosinophils % (A) 0 %; Lymphocytes # (A) 1.27 X 10*3/uL (0.90-5.00); Lymphocytes % (A) 10.7 %; Monocytes # (A) 1.72 X 10*3/uL (0.20-1.00); Monocytes % (A) 14.5 %; Neutrophils # (A) 8.78 X 10*3/uL (1.80-7.70)
[2024-08-15] MEDS: MULTIVITAMINS, THERA 1 EACH TAB PO SCH (11:15)
--- NOTE | 2024-08-15 12:47 | P.PN ---
Subjective Progress Note Date: 08/15/24 68 year old F with PMH of hypothyroidism, HLD, insomnia and depression presents to [facility] for elective surgery. She underwent R total knee arthroplasty with Dr. Hooper. [facility] Physicians consulted for medical management of this patient. She reports well controlled pain at this time. Urinating freely. No other complaints. Lives at home alone. No stairs. 08/15 Patient was seen and examined. Moderate pain in her right knee. Working with PT and OT. 93% on 3L NC. CBC shows WBC 11.86, RBC 3.13, Hg 9.4, Hct 30.3. General: non toxic, no distress, appears at stated age Derm: warm, dry Head: atraumatic, normocephalic, symmetric Eyes: EOMI, no lid lag, anicteric sclera Mouth: no lip lesion, mucus membranes moist Cardiovascular: S1S2 reg, no murmur Ext: no gross muscle atrophy, no edema, no contractures Neuro: no focal neuro deficits Psych: Alert, oriented, appropriate affect Based on my assessment of this patient, this patient meets a moderate complexity level of care. Acute blood loss anemia which is an expected result of surgery Leukocytosis which is likely reactive with no signs of active infection Depression + Insomnia: Ambien 12.5 mg PO QHS. Hydroxyzine 50 mg PO QHS. Olanzapine 10 mg PO QHS. Sertraline 100 mg PO QHS. Hypothyroidism: Synthroid 137 mcg PO QD. Dyslipidemia: Crestor 20 mg PO QD. CODE STATUS: FULL CODE. DVT Prophylaxis: Lovenox SQ GI Prophylaxis: Designated medical POA if patient is not able to make medical decisions for themselves: I have reviewed the following student union consultant notes: Ortho note. I have reviewed the results of the following tests: CBC I have ordered the following tests: Repeat CBC in the AM. I have discussed the care of this patient with the following independent historian: I have independently interpreted the following test below: I have discussed the management of this patient with the following physician: Objective - Vital Signs Vital signs: Vital Signs Temp 97.6 F 08/15/24 07:33 Pulse 69 08/15/24 07:33 Resp 18 08/15/24 07:33 BP 123/67 08/15/24 07:33 Pulse Ox 93 L 08/15/24 07:33 FiO2 Intake & Output 08/14/24 08/15/2425 18:59 06:59 18:59 Intake Total 1270 Output Total 100 Balance 1170 Weight 101.8 kg Intake: IV 1150 Oral 120 Output: Estimated Blood Loss 100 Other: Voiding Method Toilet # Voids 1 1 - Labs CBC & Chem 7: 08/15/24 05:58
[2024-08-16 09:47] LABS: HCT 31.8 % (34.0-46.0); HGB 10.5 gm/dL (11.4-16.0); Hypochromasia Slight; MCH 31.7 pg (25.0-35.0); MCHC 32.9 g/dL (31.0-37.0); MCV 96.5 fL (80.0-100.0); Mean Platelet Volume 7.6; Platelet Count 196 k/uL (150-450); RDW 15.2 % (11.5-15.5); WBC 9.6 k/uL (3.8-10.6)
--- NOTE | 2024-08-16 09:50 | P.PN ---
Subjective Progress Note Date: 08/16/24 Principal diagnosis: Primary osteoarthritis right knee. Status post total right knee arthroplasty. This is a 68-year-old female who is postop day #2 status post total right knee arthroplasty. She states that her pain is a little better today but states that it increases significantly when she attempts to get up. She is getting up with one-person assist to the bathroom. She has no new complaints or concerns today. She is asking to stay 1 more night. Objective - Vital Signs Vital signs: Vital Signs Temp 98.3 F 08/16/24 07:22 Pulse 78 08/16/24 07:22 Resp 19 08/16/24 07:22 BP 143/76 08/16/24 07:22 Pulse Ox 93 L 08/16/24 08:37 FiO2 Intake & Output 08/15/24 08/16/24 08/16/24 18:59 06:59 18:59 Other: Voiding Method Toilet Toilet # Voids 5 1 - Exam This is a 68-year-old female in no acute distress. She is alert and oriented x 3. Exam of the right lower extremity reveals that her dressing is clean, dry and intact. There is mild soft tissue swelling and mild ecchymosis. No calf pain with palpation. She has full foot and ankle motion without difficulty or pain. Neurovascular status to the lower extremity is intact. - Labs CBC & Chem 7: 08/16/24 09:22 Labs: Abnormal Lab Results - Last 24 Hours (Table) 08/15/24 08/16/24 Range/Units 05:58 09:22 WBC 11.86 H (4.50-10.00) X 10*3/uL RBC 3.13 L 3.30 L (4.10-5.20) X 10*6/uL Hgb 9.4 L 10.5 L (12.0-15.0) g/dL Hct 30.3 L 31.8 L (37.2-46.3) % MCHC 31.0 L (32.0-37.0) g/dL RDW 15.8 H (11.5-14.5) % Immature Gran # 0.07 H (0.00-0.04) X 10*3/uL Neutrophils # 8.78 H (1.80-7.70) X 10*3/uL Monocytes # 1.72 H (0.20-1.00) X 10*3/uL Eosinophils # 0 L (0.04-0.35) X 10*3/uL Assessment and Plan (1) Primary localized osteoarthritis of right knee Current Visit: Yes Status: Acute Code(s): M17.11 - UNILATERAL PRIMARY OSTEOARTHRITIS, RIGHT KNEE SNOMED Code(s): 721885824101430 (2) Status post total right knee replacement Current Visit: Yes Status: Acute Code(s): Z96.651 - PRESENCE OF RIGHT ARTIFICIAL KNEE JOINT SNOMED Code(s): 4388585871721 Plan: The clinical findings are discussed with the patient. We discussed the possibility of inpatient rehab if she feels unsafe to go home. She states that she would like to go home tomorrow. We will have physical therapy reevaluate tomorrow morning to determine her function and safety for going home alone.
[2024-08-16 10:00] LABS: African American GFR (CKD) >90 (>60 ml/min/1.73 sqM); Anion Gap 6 mmol/L; Blood Urea Nitrogen 14 mg/dL (7-17); Calcium 8.3 mg/dL (8.4-10.2); Carbon Dioxide 27 mmol/L (22-30); Chloride 104 mmol/L (98-107); Glucose 109 mg/dL (74-99); Non-African American GFR(CKD) 86 (>60 ml/min/1.73 sqM); Potassium 4.4 mmol/L (3.5-5.1); Sodium 137 mmol/L (137-145)
--- NOTE | 2024-08-16 10:05 | XR ---
EXAMINATION TYPE: XR chest 1V portable DATE OF EXAM: 08/16/2024 COMPARISON: Chest x-ray January 28, 2023 CLINICAL INDICATION: Female, 68 years old with history of Hypoxia; TECHNIQUE: Single frontal view of the chest is obtained. FINDINGS: There is no suspicious focal airspace opacity, pleural effusion, or pneumothorax. The car diac silhouette size is upper limits of normal. Overlying partially calcified right breast implant i s felt present. The osseous structures are intact. IMPRESSION: No acute pulmonary process. [facility], , 08/16/2024 10:03 AM
--- NOTE | 2024-08-16 11:29 | P.PN ---
Subjective Progress Note Date: 08/16/24 68 year old F with PMH of hypothyroidism, HLD, insomnia and depression presents to [facility] for elective surgery. She underwent R total knee arthroplasty with Dr. Hooper. [facility] consulted for medical management of this patient. She reports well controlled pain at this time. Urinating freely. No other complaints. Lives at home alone. No stairs. 08/15 Patient was seen and examined. Moderate pain in her right knee. Working with PT and OT. 93% on 3L NC. CBC shows WBC 11.86, RBC 3.13, Hg 9.4, Hct 30.3. 08/16 Patient was seen and examined. 93% on 3L NC. CBC and BMP significant for RBC 3.3, Hg 10.5, Hct 31.8, glu 109, Ca 8.3. CXR shows no acute process. General: non toxic, no distress, appears at stated age Derm: warm, dry Head: atraumatic, normocephalic, symmetric Eyes: EOMI, no lid lag, anicteric sclera Mouth: no lip lesion, mucus membranes moist Cardiovascular: S1S2 reg, no murmur Ext: no gross muscle atrophy, no edema, no contractures Neuro: no focal neuro deficits Psych: Alert, oriented, appropriate affect Based on my assessment of this patient, this patient meets a moderate complexity level of care. Hypoxia: 90% on RA. CXR benign. Incentive spirometer ordered. Acute blood loss anemia which is an expected result of surgery Depression + Insomnia: Ambien 12.5 mg PO QHS. Hydroxyzine 50 mg PO QHS. Olanzapine 10 mg PO QHS. Sertraline 100 mg PO QHS. Hypothyroidism: Synthroid 137 mcg PO QD. Dyslipidemia: Crestor 20 mg PO QD. Resolved: Leukocytosis CODE STATUS: FULL CODE. DVT Prophylaxis: Lovenox SQ GI Prophylaxis: Designated medical POA if patient is not able to make medical decisions for themselves: I have reviewed the following oracle ebs consultant notes: Ortho note. I have reviewed the results of the following tests: CBC, BMP. I have ordered the following tests: I have discussed the care of this patient with the following independent historian: I have independently interpreted the following test below: CXR I have discussed the management of this patient with the following physician: Objective - Vital Signs Vital signs: Vital Signs Temp 98.3 F 08/16/24 07:22 Pulse 78 08/16/24 07:22 Resp 19 08/16/24 07:22 BP 143/76 08/16/24 07:22 Pulse Ox 93 L 08/16/24 08:37 FiO2 Intake & Output 08/15/24 08/16/24 08/16/24 18:59 06:59 18:59 Other: Voiding Method Toilet Toilet # Voids 5 1 - Labs CBC & Chem 7: 08/16/24 09:22 08/16/24 09:22 Labs: Abnormal Lab Results - Last 24 Hours (Table) 08/15/24 Range/Units 05:58 WBC 11.86 H (4.50-10.00) X 10*3/uL RBC 3.13 L (4.10-5.20) X 10*6/uL Hgb 9.4 L (12.0-15.0) g/dL Hct 30.3 L (37.2-46.3) % MCHC 31.0 L (32.0-37.0) g/dL RDW 15.8 H (11.5-14.5) % Immature Gran # 0.07 H (0.00-0.04) X 10*3/uL Neutrophils # 8.78 H (1.80-7.70) X 10*3/uL Monocytes # 1.72 H (0.20-1.00) X 10*3/uL Eosinophils # 0 L (0.04-0.35) X 10*3/uL
--- NOTE | 2024-08-17 08:16 | P.PN ---
Subjective Progress Note Date: 08/17/24 Primary osteoarthritis right knee. Status post total right knee arthroplasty. This is a 68-year-old female who is postop day #3 status post total right knee arthroplasty. She states that her pain is a little better today but states that it increases significantly when she attempts to get up. She is getting up with one-person assist to the bathroom. She has no new complaints or concerns today. Objective - Vital Signs Vital signs: Vital Signs Temp 97.4 F L 08/17/24 02:00 Pulse 114 H 08/17/24 02:00 Resp 17 08/17/24 02:00 BP 138/84 08/17/24 02:00 Pulse Ox 94 L 08/17/24 02:00 FiO2 Intake & Output 08/16/24 08/17/24 08/17/24 18:59 06:59 18:59 Other: Voiding Method Toilet # Voids 3 1 - Exam Patient was examined at bedside. Patient is resting comfortably in bed. No apparent distress. They are awake, alert and able to answer questions. On inspection the surgical right knee dressing is intact, there is no drainage or strikethrough. The skin surrounding the dressing is free of erythema. There is mild swelling in the operative thigh. Operative femoral nerve function is intact. The operative calf is soft to compression. The patient is able to actively plantarflex and dorsiflex their operative ankle and toes. Their operative foot appears well perfused. - Labs CBC & Chem 7: 08/16/24 09:22 08/16/24 09:22 Labs: Abnormal Lab Results - Last 24 Hours (Table) 08/16/24 08/16/24 Range/Units 09:22 09:22 RBC 3.30 L (3.80-5.40) m/uL Hgb 10.5 L (11.4-16.0) gm/dL Hct 31.8 L (34.0-46.0) % Glucose 109 H (74-99) mg/dL Calcium 8.3 L (8.4-10.2) mg/dL Assessment and Plan Assessment: right knee osteoarthritis status post total right knee replacement right Plan: The clinical findings are discussed with the patient. We discussed the possibility of inpatient rehab based on physical therapy's recommendations. We will have physical therapy evaluate today. Plan pending. We appreciate internal medicine for perioperative medical management.
[2024-08-17] MEDS: diazePAM 5 MG TAB PO PRN (08:25)
[2024-08-17 09:26] LABS: Basophils # (A) 0.04 X 10*3/uL (0.00-0.10); Basophils % (A) 0.5 %; Eosinophils # (A) 0.33 X 10*3/uL (0.04-0.35); Eosinophils % (A) 3.9 %; HCT 31.1 % (37.2-46.3); HGB 9.7 g/dL (12.0-15.0); Lymphocytes # (A) 2.02 X 10*3/uL (0.90-5.00); MCH 30.3 pg (27.0-32.0); MCHC 31.2 g/dL (32.0-37.0); MCV 97.2 FL (80.0-97.0); Mean Platelet Volume 10.3 FL (9.5-12.2); Monocytes # (A) 1.12 X 10*3/uL (0.20-1.00); Monocytes % (A) 13.3 %; NRBC Per 100 WBC 0.03 X 10*3/uL (0.00-0.01); Neutrophils # (A) 4.87 X 10*3/uL (1.80-7.70); Neutrophils % (A) 57.7 %; Platelet Count 239 X 10*3/uL (140-440); RDW 16.1 % (11.5-14.5); WBC 8.43 X 10*3/uL (4.50-10.00)
--- NOTE | 2024-08-17 13:31 | P.PN ---
Subjective Progress Note Date: 08/17/24 68 year old F with PMH of hypothyroidism, HLD, insomnia and depression presents to [facility] for elective surgery. She underwent R total knee arthroplasty with Dr. Hooper. [facility] [place] [facility] consulted for medical management of this patient. She reports well controlled pain at this time. Urinating freely. No other complaints. Lives at home alone. No stairs. 08/15 Patient was seen and examined. Moderate pain in her right knee. Working with PT and OT. 93% on 3L NC. CBC shows WBC 11.86, RBC 3.13, Hg 9.4, Hct 30.3. 08/16 Patient was seen and examined. 93% on 3L NC. CBC and BMP significant for RBC 3.3, Hg 10.5, Hct 31.8, glu 109, Ca 8.3. CXR shows no acute process. 08/17 Patient was seen and examined. 93% on 3L NC. CBC RBC 3.2, Hg 9.7, Hct 31.1. Patient adamant about going home does not want rehab. General: non toxic, no distress, appears at stated age Derm: warm, dry Head: atraumatic, normocephalic, symmetric Eyes: EOMI, no lid lag, anicteric sclera Mouth: no lip lesion, mucus membranes moist Cardiovascular: S1S2 reg, no murmur Ext: no gross muscle atrophy, no edema, no contractures Neuro: no focal neuro deficits Psych: Alert, oriented, appropriate affect Based on my assessment of this patient, this patient meets a moderate complexity level of care. Hypoxia: 93% on 3L NC. Asymptomatic. CXR benign. Incentive spirometer ordered. Discussed with RN to wean O2. Acute blood loss anemia which is an expected result of surgery Depression + Insomnia: Ambien 12.5 mg PO QHS. Hydroxyzine 50 mg PO QHS. Orestes zapine 10 mg PO QHS. Sertraline 100 mg PO QHS. Hypothyroidism: Synthroid 137 mcg PO QD. Dyslipidemia: Crestor 20 mg PO QD. Resolved: Leukocytosis CODE STATUS: FULL CODE. DVT Prophylaxis: Lovenox SQ GI Prophylaxis: Designated medical POA if patient is not able to make medical decisions for themselves: I have reviewed the following farm service consultant notes: Ortho note. I have reviewed the results of the following tests: CBC I have ordered the following tests: I have discussed the care of this patient with the following independent historian: RN. I have independently interpreted the following test below: I have discussed the management of this patient with the following physician: Objective - Vital Signs Vital signs: Vital Signs Temp 98.2 F 08/17/24 08:04 Pulse 71 08/17/24 08:04 Resp 16 08/17/24 08:04 BP 117/69 08/17/24 08:04 Pulse Ox 93 L 08/17/24 08:04 FiO2 Intake & Output 08/16/24 08/17/24 08/17/24 18:59 06:59 18:59 Other: Voiding Method Toilet # Voids 3 1 1 - Labs CBC & Chem 7: 08/17/24 02:59 08/16/24 09:22 Labs: Abnormal Lab Results - Last 24 Hours (Table) 08/17/24 Range/Units 02:59 RBC 3.20 L (4.10-5.20) X 10*6/uL Hgb 9.7 L (12.0-15.0) g/dL Hct 31.1 L (37.2-46.3) % MCV 97.2 H (80.0-97.0) FL MCHC 31.2 L (32.0-37.0) g/dL RDW 16.1 H (11.5-14.5) % Immature Gran # 0.05 H (0.00-0.04) X 10*3/uL Monocytes # 1.12 H (0.20-1.00) X 10*3/uL NRBC/100 WBC Diff 0.03 H (0.00-0.01) X 10*3/uL
[2024-08-17 14:47] VITALS: BP 118/71; PULSE 79; RESP 18; TEMP 98.7
--- NOTE | 2024-08-17 17:04 | P.DS ---
Providers Attending physician: Lavelle Hooper Consults: 08/14/24 11:39 Consult Physician Routine Consulting Provider: Mandi Cazares Consult Reason/Comments: post op medical management Do you want consulting provider notified?: Yes Primary care physician: Ludiv[facility] Course: This is a 68-year-old female patient, with past medical history of severe right knee osteoarthritis, who failed nonsurgical conservative management. On 08/14/2024 the patient presented to the [facility] pre-op department for scheduled right oxana total knee arthroplasty with Dr. Hooper. The patient tolerated the procedure well. The patient was transferred to the orthopedic floor. The patient had no acute events over night. The patient's pain has been well-controlled. Patient was examined at bedside. Patient is resting comfortably in bed. No apparent distress. They are awake, alert and able to answer questions. On inspection the surgical knee dressing is intact, there is no drainage or strikethrough. The skin surrounding the dressing is free of erythema. There is mild swelling in the operative thigh. Operative femoral nerve function is intact. The operative calf is soft to compression. The patient is able to actively plantarflex and dorsiflex their operative ankle and toes. Their operative foot appears well perfused with capillary refill under 2 seconds. Plan to discharge home today. Plan follow up in two weeks in our office. Please see med rec for a list of accurate medications. Assessment: right knee osteoarthritis status post right total knee arthroplasty Plan - Discharge Summary Discharge Rx Participant: No New Discharge Prescriptions: New Aspirin 81 mg PO BID #60 tab HYDROcodone/APAP 10-325MG [Stroud 10] 1 each PO Q6H PRN #28 tab PRN Reason: Pain Ondansetron [Zofran] 4 mg PO Q6HR PRN #30 tab PRN Reason: Nausea Omeprazole 20 mg PO DAILY #30 tab Continue Sennosides-Docusate Sodium [Senokot-S] 1 each PO DAILY PRN PRN Reason: Constipation hydrOXYzine pamoate [Vistaril] 50 mg PO HS Ibuprofen [Motrin Ib] 800 mg PO DIRECTED PRN PRN Reason: Pain Unk Multi Vitamin 1 tab PO DAILY Levothyroxine Sodium [Synthroid] 137 mcg PO DAILY Sertraline [Zoloft] 100 mg PO HS 14 Days #14 tab Furosemide [Lasix] 20 mg PO DIRECTED PRN PRN Reason: Edema Zolpidem Tartrate [Ambien Cr] 12.5 mg PO HS Rosuvastatin Calcium 20 mg PO DAILY OLANZapine 10 mg PO HS Discharge Medication List Levothyroxine Sodium [Synthroid] 137 mcg PO DAILY 01/28/23 [History] Sertraline [Zoloft] 100 mg PO HS 14 Days #14 tab 01/17/24 [Rx] Unk Multi Vitamin 1 tab PO DAILY 08/11/24 [History] Furosemide [Lasix] 20 mg PO DIRECTED PRN 08/11/24 [History] Ibuprofen [Motrin Ib] 800 mg PO DIRECTED PRN 08/11/24 [History] OLANZapine 10 mg PO HS 08/11/24 [History] Rosuvastatin Calcium 20 mg PO DAILY 08/11/24 [History] Sennosides-Docusate Sodium [Senokot-S] 1 each PO DAILY PRN 08/11/24 [History] Zolpidem Tartrate [Ambien Cr] 12.5 mg PO HS 08/11/24 [History] hydrOXYzine pamoate [Vistaril] 50 mg PO HS 08/11/24 [History] Aspirin 81 mg PO BID #60 tab 08/17/24 [Rx] HYDROcodone/APAP 10-325MG [Stroud 10] 1 each PO Q6H PRN #28 tab 08/17/24 [Rx] Omeprazole 20 mg PO DAILY #30 tab 08/17/24 [Rx] Ondansetron [Zofran] 4 mg PO Q6HR PRN #30 tab 08/17/24 [Rx] Follow up Appointment(s)/Referral(s): [facility], [NON-STAFF] - 1-2 Days ([facility] accepted pt for PT at home) Lavelle Hooper MD [Medical Doctor] - 2 Weeks Patient Instructions/Handouts: Knee Replacement (DC) Activity/Diet/Wound Care/Special Instructions: 1. Weight-bear as tolerated on your operative extremity unless instructed otherwise. Use a walker or other assistive device to ambulate. 2. Leave surgical dressing in place. If your dressing becomes saturated with blood, there is drainage, or the dressing becomes loose please contact the office. 3. It is okay to shower with your surgical dressing, but do not submerge in water (no hot tubs, bath's, swimming etc.) 4. Make sure to take her blood clot prevention medication as prescribed (aspirin, Eliquis, Xarelto, and Plavix are commonly prescribed medications for blood clot prevention) 5. While taking Stroud or Percocet for pain make sure you're taking a stool softener (Colace) and drink lots of water. 6. Keep all follow-up appointments as scheduled. You will usually be seen in 1-2 weeks following surgery. 7. Please contact the office with any questions or concerns [phone] Discharge Disposition: HOME WITH HOME HEALTH SERVICES
== END 2024-08-17 16:59 | disposition home health service (06) ==
LOC: OR 08:00 → 4SSUR 11:59 → OR 08-17 16:59
PROVIDERS: ATTEND Orthopaedic Surgery
DX: M17.11 Unilateral primary osteoarthritis, right knee (principal); E03.9 Hypothyroidism, unspecified; E78.5 Hyperlipidemia, unspecified; F32.A Depression, unspecified; G47.00 Insomnia, unspecified; G89.18 Other acute postprocedural pain; Z68.37 Body mass index [BMI] 37.0-37.9, adult; Z79.890 Hormone replacement therapy; Z79.899 Other long term (current) drug therapy; Z90.710 Acquired absence of both cervix and uterus
CPT/HCPCS: 0055T; 27447; 64447; 64999; 85025; 94760

== ENCOUNTER → 2024-08-24 | Outpatient (CLI) | payer MEDICARE, OTHER ==
--- NOTE | 2024-08-24 16:19 | US ---
EXAMINATION TYPE: US venous doppler duplex LE RT DATE OF EXAM: 08/24/2024 1:52 PM COMPARISON: NONE CLINICAL INDICATION: Female, 68 years old with history of M25.561 PAIN IN RIGHT KNEE; Recent right kn ee replacement TECHNIQUE: The lower extremity deep venous system is examined utilizing real time linear array sonog mani with graded compression, color doppler sonography, and spectral doppler. SIDE PERFORMED: Right FINDINGS: VESSELS IMAGED: Common Femoral Vein Deep Femoral Vein Greater Saphenous Vein * Femoral Vein Popliteal Vein Small Saphenous Vein * Proximal Calf Veins (* superficial vessels) Right Leg: Appears negative for DVT IMPRESSION: 1. Right lower extremity ultrasound negative for deep venous thrombosis [facility], , 08/24/2024 4:17 PM
== END | disposition home or self-care (01) ==
LOC: RADUSWWP 12:53
PROVIDERS: ATTEND Orthopaedic Surgery
DX: M25.561 Pain in right knee (principal); Z96.651 Presence of right artificial knee joint